=== PATIENT | male | born 1945 | race Caucasian/White ===

== ENCOUNTER 2016-03-30 15:26 | Inpatient (IN) | payer OTHER, MEDICARE ==
[~2016-03-30] VITALS: Ht 180.3 cm; Wt 121.1 kg
[~2016-03-30 15:26] MED LIST: ACETAMINOPHEN650 M5 PR; ASPIRIN EC325 MG PO; ATORVASTATIN CA20 MG PO; ATORVASTATIN CA40 MG PO; AUGMENTIN 875875 MG PO; DULCOLAX5 MG PR; FLEET ENEMA PR; LANTUS SOLOS100 U/ML SC; LEVEMIR 10100 UNITS/ SC; LEVEMIR100 UNIT/1 SC; LEXAPRO 10MG10 MG PO; MAPAP325 M1 PO; METFORMIN HCL500 MG PO; MILK OF MAGNESI30 ML PO; NICODERM C21 MG/24 H TOP; NOVOLOG FLEX100 U/ML SC; PREDNISONE 20MG20 MG PO; PRINIVIL 5MG5 MG PO; VITAMIN D250000 UNIT PO
--- NOTE | 2016-03-30 15:34 | NUR ---
PT BIBA FROM [facility] FOR INCREASED SOB OVER THE LAST COUPLE OF WEEKS, BUT TODAY THE SOB WAS UNBEARABLE. PT HAS HISTORY OF COPD AND EMPHYSEMA. ALSO COMPLAINTS OF CHEST PAIN "AFTER I COUGH." PRODUCTIVE COUGH WITH WHITE/GUTIERREZ SPUTUM OCCASIONALLY. PT'S O2 SAT 85% RA. PLACED ON 3 LITERS O2 WITH IMPROVEMENT TO 94%. COLOR WNL.
--- NOTE | 2016-03-30 15:39 | ED DYSPNEA/ASTHMA COMPLAINT ---
History of Present Illness General Chief Complaint: Dyspnea (COPD, CHF, Other) Stated Complaint: SOB X WEEKS, WORSE TODAY Source: patient Exam Limitations: no limitations Vital Signs & Intake/Output Vital Signs & Intake/Output Vital Signs Date Time Temp Pulse Resp B/P Pulse O2 O2 Flow FiO2 Ox Delivery Rate 03/30 1758 98.3 78 24 170/80 94 Nasal 2.0L Cannula 03/30 1600 98 Nasal 2.0L Cannula 03/30 1600 93 Nasal 2.0L Cannula 03/30 1536 97.2 88 20 184/77 94 Nasal 2.0L Cannula Allergies Coded Allergies: NO KNOWN ALLERGIES (01/19/14) Reconcile Medications Acetaminophen 650 MG SUPP.RECT 1 SUPP SD Q4H PRN PAIN/TEMP>/100 (Reported) Acetaminophen (Mapap) 325 MG TABLET 2 TAB PO Q4H PRN PAIN/TEMP>/100 (Reported ) Aspirin E.c. (Ecotrin) 325 MG TAB 1 TAB PO DAILY HEART/CIRCULATION (Reported) Atorvastatin Calcium (Lipitor) 20 MG TABLET 1 TAB PO DAILY CHOLESTEROL ( Reported) Budesonide/Formoterol Fumarate (Symbicort 160-4.5 Mcg Inhaler) 160 MCG-4.5 MCG/ ACTUATION HFA.AER.AD 2 PUF INH BID COPD (Reported) Dextran 70/Hypromellose (Artificial Tears) 1 EACH DROPERETTE 1 DROP OP TID BOTH EYES (Reported) Ergocalciferol (Vitamin D2) (Vitamin D2) 50,000 UNIT CAPSULE 1 CAP PO Q30D SUPPLEMENT (Reported) Escitalopram Oxalate (Lexapro) 5 MG TABLET 1 TAB PO DAILY ANXIETY/DEPRESSION (Reported) Fleet Enema (Fleet Enema (ER) 135 Ml) 19 GRAM-7 GRAM/118 ML ENEMA 1 E SD DAILY NEEDED PRN CONSTIPATION (Reported) Insulin Detemir (Levemir) 100 UNIT/ML VIAL 26 UNITS SC 1800 DM (Reported) Insulin Detemir (Levemir) 100 UNIT/ML VIAL 35 UNITS SC QAM DM (Reported) Insulin Lispro (Humalog) 100 UNIT/ML VIAL 2 UNITS SC TIDAC DM (Reported) Lisinopril (Prinivil) 10 MG TABLET 1 TAB PO DAILY BP (Reported) Mag Hydrox/Al Hydrox/Simeth (Almacone Liquid) 200 MG-200 MG-20 MG/5 ML ORAL.SUSP 30 ML PO Q8H PRN DYSPEPSIA (Reported) Magnesium Hydroxide (Milk Of Magnesia 30ML) 400 MG/5 ML ORAL.SUSP 30 ML PO DAILY NEEDED PRN CONSTIPATION (Reported) Metformin HCl (Glucophage) 1,000 MG TABLET 1 TAB PO BID DM (Reported) Tiotropium Mcloud (Spiriva) 18 MCG CAP.W.DEV 1 CAP INH DAILY COPD (Reported) Triage Note: PT BIBA FROM [facility] FOR INCREASED SOB OVER THE LAST COUPLE OF WEEKS, BUT TODAY THE SOB WAS UNBEARABLE. PT HAS HISTORY OF COPD AND EMPHYSEMA. ALSO COMPLAINTS OF CHEST PAIN "AFTER I COUGH." PRODUCTIVE COUGH WITH WHITE/GUTIERREZ SPUTUM OCCASIONALLY. PT'S O2 SAT 85% RA. PLACED ON 3 LITERS O2 WITH IMPROVEMENT TO 94%. COLOR WNL. Triage Nurses Notes Reviewed? yes Onset: Gradual Duration: week(s): (2) Timing: recent history Severity: moderate Activities at Onset: none Prior Episodes/Possible Cause: occasional episodes Modifying Factors: Improves With: immobilization. HPI: Patient is a 70-year-old male with history of emphysema presenting to the emergency department with chief complaint of increasing shortness of breath going on for 2 weeks with intermittent sputum production. He reports that he's been coughing up some gutierrez phlegm. Denies any chest pain except for when he coughs. Denies palpitations. He has been using nebulizer treatments with little relief. He does live in a nursing facility, his roommate was sick with upper respiratory symptoms. Denies any lower extremity edema. Denies fevers or chills. (ADRIÁN CHUN,NICANOR) Past History Travel History Traveled to [place] past 21 day No Medical History Any Pertinent Medical History? 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 No (NICANOR HACKETT) Review of Systems Review of Systems Constitutional: Reports: malaise. Comments Review of systems: See HPI, All other systems negative. Constitutional, no chills fever or weight loss HEENT: No visual changes no sore throat no congestion Cardiovascular: No chest pain ,palpitation , orthopnea or ankle swelling Skin, no jaundice no rashes Respiratory: No hemoptysis GI: No nausea no vomiting : No dysuria No hematuria Muscle skeletal: no back pain, no neck pain, Neurologic: No numbness no confusion no abel Psych: No stress anxiety Immunology: No splenectomy or history of AIDS (NICANOR HACKETT) Physical Exam Physical Exam General Appearance: well developed/nourished, no apparent distress, alert, awake , comfortable Respiratory: mild resp distress Comments: Well-developed well-nourished person in no acute distress HEENT: Pupils equally round and reactive to light and accommodation. Nose is atraumatic. Neck: Supple, no lymphadenopathy, normal range of motion without pain or tenderness Back: Nontender Cardiovascular: Regular rate and rhythms no murmurs rubs or gallops, normal JVP Respiratory: Chest nontender. mild respiratory distress. Diminished breath sounds with crackles noted to the right base Abdomen: Soft, nontender , slightly distended, no appreciable organomegaly. Normal bowel sounds. No ascites Extremity: No edema, no calf tenderness to palpation, normal and equal pulses. Right [id number] amputation. Neuro: Alert oriented x3 Skin: No appreciable rash on exposed skin, skin is warm and dry. Psych: Mood and affect is normal, memory and judgment is normal. Core Measures ACS in differential dx? No Severe Sepsis Present: No Septic Shock Present: No (NICANOR HACKETT) Progress Differential Diagnosis: asthma, bronchitis, costochondritis, CHF, COPD Plan of Care: Orders Procedure Date/time Status Heart Healthy Diet 03/31 B Active Pathway - chart 03/30 1943 Active House Staff 03/30 1943 Active Code Status 03/30 1943 Active Admit to inpatient 03/30 1852 Active Vital Signs 03/30 1852 Active Code Status 03/30 1853 Complete Admit to inpatient 03/30 1743 Active Patient Data 03/30 1732 Active BLOOD CULTURE 03/30 1637 Active Add-on Test (ER Only) 03/30 1605 Active B-TYPE NATRIURETIC PEP (BNP) 03/30 1555 Complete ARTERIAL BLOOD GAS (GEN) 03/30 1539 Active Telemetry/Claim Clinician 03/30 1539 Active URINALYSIS 03/30 1539 Complete TROPONIN LEVEL 03/30 1539 Complete PARTIAL THROMBOPLASTIN TIME 03/30 1539 Complete PROTHROMBIN TIME 03/30 1539 Complete COMPREHENSIVE METABOLIC PANEL 03/30 1539 Complete CBC WITHOUT DIFFERENTIAL 03/30 1539 Complete Intake & Output 03/30 1534 Active EKG 03/30 1530 Active Current Medications Sig/Frank Start time Last Medication Dose Stop Time Status Admin Vancomycin HCl 1,000 MG DAILY 03/31 1000 AC Sodium Chloride 250 ML (Normal Saline 0.9%) Ceftazidime 1,000 MG IQ8 03/31 0000 AC (Fortaz) Heparin Sodium 5,000 UNIT Q8 03/30 2200 AC (Porcine) Acetaminophen 650 MG Q6P PRN 03/30 1945 AC (Tylenol) Laboratory Tests 03/30/16 1755: Urinalysis LIGHT H, Urine Color YEL, Urine Clarity CLEAR, Urine pH 6.0, Ur Specific Jerome 1.020, Urine Protein 100 H, Urine Ketones NEG, Urine Nitrite NEG, Urine Bilirubin NEG, Urine Urobilinogen 0.2, Ur Leukocyte Esterase NEG, Ur Microscopic SEDIMENT EXAMINED, Urine RBC 1-3, Urine WBC RARE, Ur Epithelial Cells RARE, Hyaline Casts 1-3 H, Urine Mucus RARE, Urine Hemoglobin MOD H, Urine Glucose NEG 03/30/16 1555: Anion Gap 12, Estimated GFR 35 L, BUN/Creatinine Ratio 23.7, Glucose 157 H, Calcium 8.7, Total Bilirubin 0.6, AST 22, ALT 31, Alkaline Phosphatase 152 H, Troponin I 0.06, Msh-Y-Fgxmygmxtht Pept 6780 H, Total Protein 7.3, Albumin 3.4 L, Globulin 3.9, Albumin/Globulin Ratio 0.9 L, PT 12.9 H, INR 1.23 H, APTT 32 , CBC w Diff NO MAN DIFF REQ, RBC 3.37 L, MCV 86.5, MCH 28.6, RDW 15.2 H, MPV 7.5, Gran % 85.7 H, Lymphocytes % 5.8 L, Monocytes % 5.7, Eosinophils % 2.6, Basophils % 0.2, Absolute Granulocytes 8.0 H, Absolute Lymphocytes 0.5 L, Absolute Monocytes 0.5, Absolute Eosinophils 0.2, Absolute Basophils 0, PUBS MCHC 33.1 03/30/16 1550: pH 7.40, pCO2 33 L, pO2 65 L, HCO3 20 L, ABG O2 Sat (Measured) 92.0 L, P-50 (Temp Corrected) N, Carboxyhemoglobin 1.0 L, O2 Concentration % 2L, Temperature 97.2, O2 Delivery Method NC, Phlebotomy Draw Site RIGHT RADIAL Microbiology 03/30 1645 BLOOD: Blood Culture - RECD 03/30 163 BLOOD: Blood Culture - RECD Diagnostic Imaging: Viewed by Me: Radiology Read. Discussed w/RAD: Radiology Read. Radiology Impression: PATIENT: FANNY LADD PRESENT AGE: 70 PATIENT ACCOUNT NO: [id number] : 44 LOCATION: [facility] ORDERING PHYSICIAN: NICANOR CHUN SERVICE DATE: 03/30/16 EXAM TYPE: RAD - XRY-PORTABLE CHEST XRAY EXAMINATION: XR PORTABLE CHEST CLINICAL INFORMATION: Cough and shortness of breath. COMPARISON: CXR from 10/20/[address] from 10/22/2014 TECHNIQUE: Portable view of the chest was obtained. FINDINGS: Severe pulmonary disease. Emphysema has an upper lobe predominance. There is chronic peribronchial interstitial thickening in both lungs, likely related to chronic bronchitis. Within the right upper lobe, there is new hazy opacity, suspicious for pneumonia. There are linear, streaky opacities within the lower lung zones, likely representing atelectasis secondary to bronchitis and similar in appearance compared to 10/20/2014. Stable enlargement of the cardiac silhouette and hilar vessels. No overt pleural effusion. No acute skeletal findings. IMPRESSION: 1. Chronic peribronchial interstitial thickening -- likely bronchitis -- and pulmonary emphysema. 2. New, hazy opacity in right upper lobe is suspicious for pneumonia. 3. Linear opacities of atelectasis in lower lobes remain similar in appearance compared to 10/20/2014. DICTATED BY: GENOVEVA PERLA MD DATE/TIME DICTATED:03/30/161608 [employer] TE[employer]ER:BALDOMERO DATE/TIME TRANSCRIBED:03/30/16 / 1609 CONFIDENTIAL, DO NOT COPY WITHOUT APPROPRIATE AUTHORIZATION. <Electronically signed in Other Vendor System> SIGNED BY: GENOVEVA PERLA MD 03/30/16 8031 Initial ED EKG: sinus rhythm at 88 beats pruritic, minimal nonspecific st depression in lateral leads Comments: 03/30/2016 2:08:03 PM arrival patient given DuoNeb treatment, he will go for x-ray to rule out pneumonia. 03/30/2016 5:08:46 PM patient given IV vancomycin and Fortaz for pneumonia. Patient will be admitted, he will need continued supplemental oxygen. Pulmonology consultation. Discharge at this time would be medically harmful. (NICANOR HACKETT) Departure Departure Time of Disposition: 1649 Disposition: STILL A PATIENT Condition: Stable Clinical Impression Primary Impression: Pneumonia Qualifiers: Pneumonia type: due to unspecified organism Laterality: right Lung location: middle lobe of lung Qualified Code: J18.9 - Pneumonia, unspecified organism Secondary Impressions: COPD exacerbation, Hypoxemia Referrals: BOBBY HILTON APRN (PCP/Family) Referred to [facility] as new patient No Departure Forms: Customer Survey General Discharge Information Admission Note Spoke With: STEPHANIE LOUIS MD Documentation of Exam: Documentation of any treatments & extenuating circumstances including Concerns Regarding Discharge (functional status, medication knowledge or non-compliance, living conditions, etc.) that warrant an admission rather than observation: Patient will need IV antibiotics, supplemental oxygen which is new for this patient, serial DuoNeb treatments, pulmonology consultation. Discharge at this time would be medically harmful. (NICANOR HACKETT) PA/INSTALLATION HELPER Co-Sign Statement Statement: ED Attending supervision documentation- [x] I saw and evaluated the patient. I have also reviewed all the pertinent lab results and diagnostic results. I agree with the findings and the plan of care as documented in the PA's/INSTALLATION HELPER's documentation. [] I have reviewed the ED Record and agree with the PA's/INSTALLATION HELPER's documentation. [] Additions or exceptions (if any) to the PAs/INSTALLATION HELPER's note and plan are summarized below: [] (RILEY MOSQUEDA DO) Critical Care Note Critical Care Note Critical Care Time: non-applicable (NICANOR HACKETT)
--- NOTE | 2016-03-30 15:41 | NUR ---
RT CALLED FOR NEB
--- NOTE | 2016-03-30 15:43 | NUR ---
LAY SAMPSON IN FOR [facility]
--- NOTE | 2016-03-30 15:46 | NUR ---
PORT CXR IN PROGRESS
--- NOTE | 2016-03-30 15:49 | NUR ---
RT AT BEDSIDE.
--- NOTE | 2016-03-30 16:00 | NUR ---
LABS DRAWN AND SENT BY THIS [facility] BLUE, SST X2, LAV X2, PINK, HEADLEY
[2016-03-30 16:07] LABS: ABSOLUTE BASOPHIL COUNT 0 /CUMM (0.0-0.2); ABSOLUTE EOSINOPHIL COUNT 0.2 /CUMM (0.0-0.7); ABSOLUTE LYMPH COUNT 0.5 /CUMM (1.2-3.4); ABSOLUTE MONOCYTE COUNT 0.5 /CUMM (0.10-0.60); BASOPHIL % 0.2 % (0.0-2.0); EOSINOPHIL % 2.6 % (0-5); HEMATOCRIT 29.2 % (42-52); MEAN CORPUSCULAR HGB 28.6 PG (27.0-31.0); MEAN CORPUSCULAR HGB CONC 33.1 G/DL (33.0-37.0); MEAN CORPUSCULAR VOLUME 86.5 FL (80.0-94.0); MEAN PLATELET VOLUME 7.5 FL (7.4-10.4); PLATELET COUNT 322 /CUMM (130-400); RBC DISTRIBUTION WIDTH 15.2 % (11.5-14.5); RED BLOOD CELL CT 3.37 /CUMM (4.70-6.10); WHITE BLOOD CELL COUNT 9.3 /CUMM (4.8-10.8)
[2016-03-30 16:09] LABS: GRANULOCYTE % 85.7 % (42.2-75.2)
--- NOTE | 2016-03-30 16:22 | RADIOLOGY REPORT ---
EXAMINATION: XR PORTABLE CHEST CLINICAL INFORMATION: Cough and shortness of breath. COMPARISON: CXR from 10/20/[address] from 10/22/2014 TECHNIQUE: Portable view of the chest was obtained. FINDINGS: Severe pulmonary disease. Emphysema has an upper lobe predominance. There is chronic peribronchial interstitial thickening in both lungs, likely related to chronic bronchitis. Within the right upper lobe, there is new hazy opacity, suspicious for pneumonia. There are linear, streaky opacities within the lower lung zones, likely representing atelectasis secondary to bronchitis and similar in appearance compared to 10/20/2014. Stable enlargement of the cardiac silhouette and hilar vessels. No overt pleural effusion. No acute skeletal findings. IMPRESSION: 1. Chronic peribronchial interstitial thickening -- likely bronchitis -- and pulmonary emphysema. 2. New, hazy opacity in right upper lobe is suspicious for pneumonia. 3. Linear opacities of atelectasis in lower lobes remain similar in appearance compared to 10/20/2014.
[2016-03-30 16:25] LABS: PT 12.9 SEC (9.4-12.5); PTT 32 SEC (25-37)
[2016-03-30] MEDS ORDERED: HUMALOG100 UNIT/2 SC (16:47)
[2016-03-30] MEDS ORDERED: GLUCOPHAGE1000 M1 PO (16:48)
[2016-03-30] MEDS ORDERED: SYMBICORT 16010.2 GM INH (16:48)
[2016-03-30] MEDS ORDERED: SPIRIVA18 MCG INH (16:50)
[2016-03-30] MEDS ORDERED: LEXAPRO5 M1 PO (16:50)
[2016-03-30] MEDS ORDERED: ARTIFICIAL TEA1 EACH OP (16:51)
[2016-03-30] MEDS ORDERED: PRINIVIL10 M1 PO (16:53)
[2016-03-30] MEDS ORDERED: ALMACONE LIQUI355 ML PO (16:58)
--- NOTE | 2016-03-30 17:27 | NUR ---
PLEASE CALL T WITH UPDATE MARK
--- NOTE | 2016-03-30 17:55 | NUR ---
URINE TRIO SENT
--- NOTE | 2016-03-30 18:14 | History & Physical ---
TIFFANY SORIANOSHREE 03/30/16 0563: General Information and HPI MD Statement: I have seen and personally examined FANNY LADD and documented this H&P. The patient is a 70 year old M who presented with a patient stated chief complaint of [shortness of breath]. Source of Information: patient Exam Limitations: no limitations History of Present Illness: 70-year-old male with PMH of insulin dependent DM, hypertension, right above the knee amputation, left below the knee amputation, intermediate resident of 2 years, presented with increased shortness of breath. On Wednesday, he noted that his breathing is worse, and it would take him an hour to get up the stairs. This morning, he was feeling extremely short of breath rolling his wheelchair from his bed to his bathroom, which is a distance of 8 feet. He also notes some chest pain especially when he coughs. His cough is not productive of sputum. Of note, his roommate also has been having upper respiratory symptoms and he was being treated with pneumonia. In the ED, his o2 sat was found to be 85% on RA and improved to 94% on 3L O2. On examination, he was sitting comfortably in bed, and appeared to be in no respiratory distress. He reported feeling "60% better already". He is still a current smoker, smoking about 8 cigarette/day, but was smoking 2.5 ppd for more than 50 years. On ROS, he denies fever, chills, orthopnea (uses 2 pillows to sleep, and he seems to prefer to sleep sitting up). He reports feeling more tired, feeling constipated, and some chest tightness. Allergies/Medications Allergies: Coded Allergies: NO KNOWN ALLERGIES (01/19/14) Home Med list Acetaminophen 650 MG SUPP.RECT 1 SUPP [place] Q4H PRN PAIN/TEMP>/100 (Reported) Acetaminophen (Mapap) 325 MG TABLET 2 TAB PO Q4H PRN PAIN/TEMP>/100 (Reported ) Aspirin E.c. (Ecotrin) 325 MG TAB 1 TAB PO DAILY HEART/CIRCULATION (Reported) Atorvastatin Calcium (Lipitor) 20 MG TABLET 1 TAB PO DAILY CHOLESTEROL ( Reported) Budesonide/Formoterol Fumarate (Symbicort 160-4.5 Mcg Inhaler) 160 MCG-4.5 MCG/ ACTUATION HFA.AER.AD 2 PUF INH BID COPD (Reported) Dextran 70/Hypromellose (Artificial Tears) 1 EACH DROPERETTE 1 DROP OP TID BOTH EYES (Reported) Ergocalciferol (Vitamin D2) (Vitamin D2) 50,000 UNIT CAPSULE 1 CAP PO Q30D SUPPLEMENT (Reported) Escitalopram Oxalate (Lexapro) 5 MG TABLET 1 TAB PO DAILY ANXIETY/DEPRESSION (Reported) Fleet Enema (Fleet Enema (ER) 135 Ml) 19 GRAM-7 GRAM/118 ML ENEMA 1 E [place] DAILY NEEDED PRN CONSTIPATION (Reported) Insulin Detemir (Levemir) 100 UNIT/ML VIAL 26 UNITS SC 1800 DM (Reported) Insulin Detemir (Levemir) 100 UNIT/ML VIAL 35 UNITS SC QAM DM (Reported) Insulin Lispro (Humalog) 100 UNIT/ML VIAL 2 UNITS SC TIDAC DM (Reported) Lisinopril (Prinivil) 10 MG TABLET 1 TAB PO DAILY BP (Reported) Mag Hydrox/Al Hydrox/Simeth (Almacone Liquid) 200 MG-200 MG-20 MG/5 ML ORAL.SUSP 30 ML PO Q8H PRN DYSPEPSIA (Reported) Magnesium Hydroxide (Milk Of Magnesia 30ML) 400 MG/5 ML ORAL.SUSP 30 ML PO DAILY NEEDED PRN CONSTIPATION (Reported) Metformin HCl (Glucophage) 1,000 MG TABLET 1 TAB PO BID DM (Reported) Tiotropium [place] (Spiriva) 18 MCG CAP.W.DEV 1 CAP INH DAILY COPD (Reported) Past History Travel History Traveled to [place] past 21 day No Medical History Neurological: NONE EENT: NONE Cardiovascular: hypertension, ELEVATED CHOLESTEROL Respiratory: NONE Gastrointestinal: NONE Hepatic: NONE Renal: NONE Musculoskeletal: R ABOVE KNEE AMPUTATION L BELOW KNEE AMPUTATION, L below knee amputation Psychiatric: NONE Endocrine: DIABETES (TYPE II) Blood Disorders: NONE Cancer(s): NONE 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 [facility] Services at Home: Nursing Smoking Status: Current Everyday Smoker ETOH Use: denies use Illicit Drug Use: denies illicit drug use Functional Ability Ambulation: wheelchair Review of Systems Review of Systems Constitutional: Reports: malaise. Denies: chills, fever. EENTM: Denies: visual changes. Cardiovascular: Reports: chest pain. Denies: edema, orthopena, palpitations, peripheral edema, syncope. Respiratory: Reports: cough, short of breath. Denies: orthopnea, sputum production, wheezing. GI: Reports: constipation. Denies: abdominal pain, bloating, diarrhea. Exam & Diagnostic Data Last 24 Hrs of Vital Signs/I&O Vital Signs Date Time Temp Pulse Resp B/P Pulse O2 O2 Flow FiO2 Ox Delivery Rate 03/30 1758 98.3 78 24 170/80 94 Nasal 2.0L Cannula 03/30 1600 98 Nasal 2.0L Cannula 03/30 1600 93 Nasal 2.0L Cannula 03/30 1536 97.2 88 20 184/77 94 Nasal 2.0L Cannula Intake & Output 03/30 1600 03/30 0800 03/30 0000 Intake Total 0 Output Total Balance 0 Intake, Oral 0 Patient 122.016 kg Weight Physical Exam General Appearance Alert, Oriented X3, Cooperative, No Acute Distress, sitting comfortably on the bed in no distress Skin dry crusted lesions on both arms reportedly due to skin cancer treatment (7 years ago) HEENT Atraumatic, PERRLA, Mucous Membr. moist/pink Neck Supple Cardiovascular Regular Rate, Normal S1, Normal S2, No Murmurs, Gallops, Rubs Lungs diffuse decreased breath sound Abdomen Normal Bowel Sounds, Soft, No Tenderness, obese Neurological Normal Speech Assessment/Plan Assessment: 70-year-old male with PMH of insulin dependent DM, hypertension, right above the knee amputation, left below the knee amputation, intermediate resident of 2 years, presented with increased shortness of breath, with hx of sick contact. # Acute hypoxemic respiratory failure most likely due to healthcare acquired pneumonia - Imaging: New, hazy opacity in right upper lobe is suspicious for pneumonia. Chronic peribronchial interstitial thickening -- likely bronchitis -- and pulmonary emphysema. - ABG on arrival 7.40/33L/65L/20L - Given 1 time vancomycin and ceftazidime in the ED * Continue vancomycin and ceftazidime * TRC/nebs * urine legionella, strep pneumo * follow blood cultures, sputum cultures # Brief episode of atrial afibrillation * tele monitor * Cardio consult * continue aspirin # Hypertension * Labetalol 5mg # Insulin dependent diabetes mellitus * Consider checking hba1c * Continue insulin # SRIDEVI on CKD? * Hold lisinopril Diet: CC3 DVT ppx: heparin sc, no alps because he has bilateral amputation. FC As Ranked By This Provider Problem List: 1. Pneumonia Qualifiers Pneumonia type: due to unspecified organism Laterality: right Lung location: middle lobe of lung Qualified Code: J18.9 - Pneumonia, unspecified organism 2. Hypoxemia Core Measures/Miscellaneous Acute Coronary Syndrome ACS Diagnosis: No Cerebrovascular Accident CVA/TIA Diagnosis: No Congestive Heart Failure CHF Diagnosis: No Venous Thromboembolism VTE Risk Factors: Acute medical illness, Age > 40 VTE Prophylaxis Ordered Inpt: Pharm- Heparin No Mech VTE prophylaxis d/t: Amputee No VTE Pharm Prophylaxis d/t: No contraindications VTE Diagnosis: No VTE Type: NONE VTE Confirmed by (Test): NONE Severe Sepsis Severe Sepsis Present: No Septic Shock Septic Shock Present: No Miscellaneous Documentation Attending Case Discussed With: HERIBERTO SORIANO,STEPHANIE Gutierrez Primary Care Physician: BOBBY HILTON APRN Patient sees these Specialists Dr. 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 Patient reported that he is having cough for couple of weeks and now he is having shortness of breath on exertion she is getting worse during one or 2 days. Reports that his room mate has symptoms of URI. He denies any nausea, vomiting, chest pain but reports chest tightness. He denies any fevers, chills, dizziness, changes in urinary or bowel habits(except constipation). Vital signs on admission showed elevated blood pressure with no fevers and O2 saturation over 92% on 3 L. upon admission patient briefly went into atrial fibrillation and Converted back to sinus. Initial EKG shows sinus rhythm, 88, QTC 489, no acute ST-T changes ABG showed HCO3 20, PO2 65, CO2 33, BMP 6780, hemoglobin 9.6, creatinine 1.9 cxr: IMPRESSION: 1. Chronic peribronchial interstitial thickening -- likely bronchitis -- and pulmonary emphysema. 2. New, hazy opacity in right upper lobe is suspicious for pneumonia. 3. Linear opacities of atelectasis in lower lobes remain similar in appearance compared to 10/20/2014. Assessment -Diabetes -Multilobar pneumonia -Brief episode of atrial fibrillation -COPD and chronic smoker -Depression -HTN -SRIDEVI on CKD? -anemia Plan -put the patient on ceftaz and vanc -Admit to telemetry and cardiology consult in the morning -24 hour telemetry, lab on troponin and troponin for the morning with EKG -TRC nebs with spiriva -Diabetic diet, long-acting(hald dose) and short-acting insulin -Stop lisinopril for CKD -Continue Lexapro -Labetalol 5 mg for high blood pressure -Urine legionella, strep, blood cultures, sputum cultures -Full code, DVT prophylaxis subcutaneous heparin, diabetic diet -Continue aspirin -watch for bleeding
--- NOTE | 2016-03-30 18:20 | NUR ---
HOUSESTAFF IN FOR KAMI
--- NOTE | 2016-03-30 18:32 | NUR ---
ALBUTEROL X 3 ORDERED BY NICANOR Yee WERE CANCELLED DISCUSSED WITH NICANOR Yee
--- NOTE | 2016-03-30 19:07 | NUR ---
AWAITING BED ASSIGNMENT. Informed waiting has been performed.
--- NOTE | 2016-03-30 19:42 | NUR ---
PT SITTING UP IN STRETCHER. NO S/S OF RESPIRATORY DISTRESS.
--- NOTE | 2016-03-30 19:59 | NUR ---
PT'S RM ASSIGNMENT 230 BED 2
--- NOTE | 2016-03-30 20:28 | NUR ---
UPDATED RM ASSIGNMENT 226
--- NOTE | 2016-03-30 20:50 | NUR ---
MANUAL B/P 180/80, HEART RATE 106-130'S AND IRREGULAR. EKG AFIB. HOUSE STAFF NOTIFED AND UPDATED THE CHANGE OF CONDITION. PT DENIES ANY CARDIOPULMONARY DISTRESS.
--- NOTE | 2016-03-30 21:04 | NUR ---
SINUS RHYTHM IN 80'S AT THIS TIME. HOUSE STAFF AWARE.
--- NOTE | 2016-03-30 21:29 | NUR ---
UPDATED RM RM ASSIGNMENT 172
--- NOTE | 2016-03-30 21:56 | NUR ---
REPORT CALLED. DISTRIBUTION CALLED.
--- NOTE | 2016-03-30 22:24 | NUR ---
FANNY LADD Nurse Note by: URIEL VYAS I agree with the DAY CARE WORKER findings/evaluation of this patient's condition. Entered by: URIEL VYAS Date: 03/30/16 Time: 2223
[2016-03-30 22:26] VITALS: BP 172/80
--- NOTE | 2016-03-31 07:01 | PN- Att Addend ---
Attending Addendum Attending Brief Note Current Medications Sig/Frank Start time Last Medication Dose Route Stop Time Status Admin Acetaminophen 650 MG Q4P PRN 03/30 2230 AC PO Acetaminophen 650 MG Q6P PRN 03/30 1945 AC PO Acetaminophen 1,000 MG Q8 PRN 03/30 1730 DC N/A 1 UNIT IV Albuterol Sulfate 3 ML ONCE ONE 03/30 1545 DC 03/30 INH 03/30 1546 1548 Albuterol Sulfate 3 ML ONCE ONE 03/30 1545 DC INH 03/30 1546 Albuterol Sulfate 3 ML ONCE ONE 03/30 1545 DC INH 03/30 1546 Albuterol Sulfate 3 ML ONCE ONE 03/30 1545 DC INH 03/30 1546 Amlodipine Besylate 5 MG DAILY 03/31 1000 AC 03/31 PO 0300 Artificial Tears 2 GTT TID 03/30 2224 AC OPH Aspirin Buffered 325 MG DAILY 03/31 1000 AC PO Atorvastatin Calcium 20 MG DAILY 03/31 1000 AC PO Ceftazidime 1,000 MG IQ8 03/31 0000 AC 03/31 IV 0027 Ceftazidime 0 .STK-MED ONE 03/30 1646 DC .ROUTE Ceftazidime 1,000 MG ONCE ONE 03/30 1645 DC 03/30 IV 03/30 1646 1721 Escitalopram Oxalate 5 MG DAILY 03/31 1000 AC PO Heparin Sodium 5,000 UNIT Q8 03/30 2200 AC 03/31 (Porcine) SC 0600 Insulin Aspart 0 TIDAC 03/31 0800 AC SC Insulin Detemir 20 UNITS BID 03/31 1000 AC SC Ipratropium [place] 2.5 ML ONCE ONE 03/30 1545 DC 03/30 INH 03/30 1546 1548 Labetalol HCl 0 .STK-MED ONE 03/30 2142 DC IV Labetalol HCl 5 MG ONCE ONE 03/30 2130 DC IV 03/30 2131 Lisinopril 10 MG DAILY 03/31 1000 CAN PO Metoprolol Tartrate 5 MG ONCE ONE 03/30 2115 CAN IV 03/30 211 Morphine Sulfate 2 MG Q6P PRN 03/30 1730 DC IV Tiotropium [place] 1 PUF DAILY 03/31 1000 AC INH Tramadol HCl 50 MG Q8P PRN 03/30 1730 DC PO Vancomycin HCl 1,000 MG DAILY 03/31 1000 AC Sodium Chloride 250 ML IV Vancomycin HCl 0 .STK-MED ONE 03/30 1646 DC .ROUTE Vancomycin HCl 1,000 MG ONCE ONE 03/30 1645 DC 03/30 Sodium Chloride 250 ML IV 03/30 1744 1721 Laboratory Tests 03/30 03/30 2300 1755 Chemistry Troponin I Cancelled Urines Urinalysis LIGHT H Urine Color (YEL,AMB,STR) YEL Urine Clarity (CLEAR) CLEAR Urine pH (5.0 - 8.0) 6.0 Ur Specific [place] (1.001 - 1.035) 1.020 Urine Protein (NEG,<30 MG/DL) 100 H Urine Ketones (NEG) NEG Urine Nitrite (NEG) NEG Urine Bilirubin (NEG) NEG Urine Urobilinogen (0.1 - 1.0 EU/dl) 0.2 Ur Leukocyte Esterase (NEG) NEG Ur Microscopic SEDIMENT EXAMINED Urine RBC (0 - 5 /HPF) 1-3 Urine WBC (0 - 2 /HPF) RARE Ur Epithelial Cells (NONE,FEW) RARE Hyaline Casts (0/LPF) 1-3 H Urine Mucus (FEW,NONE) RARE Urine Hemoglobin (NEG) MOD H Urine Glucose (N MG/DL) NEG 03/30 03/30 1555 1550 Blood Gas pH (7.35 - 7.45 PH) 7.40 pCO2 (35 - 45 TORR) 33 L pO2 (80 - 100 TORR) 65 L HCO3 (21 - 28 MEQ/L) 20 L ABG O2 Sat (Measured) (>96.0 %) 92.0 L P-50 (Temp Corrected) N Carboxyhemoglobin (1.5 - 5.0 %) 1.0 L O2 Concentration % 2L Temperature (97.0 - 100.0 FARH) 97.2 O2 Delivery Method NC Chemistry Sodium (137 - 145 mmol/L) 138 Potassium (3.5 - 5.1 mmol/L) 4.9 Chloride (98 - 107 mmol/L) 102 Carbon Dioxide (22 - 30 mmol/L) 24 Anion Gap (5 - 16) 12 BUN (9 - 20 mg/dL) 45 H Creatinine (0.7 - 1.2 mg/dL) 1.9 H Estimated GFR (>60 ml/min) 35 L BUN/Creatinine Ratio (7 - 25 %) 23.7 Glucose (65 - 99 mg/dL) 157 H Calcium (8.4 - 10.2 mg/dL) 8.7 Total Bilirubin (0.2 - 1.3 mg/dL) 0.6 AST (17 - 59 U/L) 22 ALT (21 - 72 U/L) 31 Alkaline Phosphatase (< 127 U/L) 152 H Troponin I (<0.11 ng/ml) 0.06 Myg-R-Ecqqairhbnt Pept (<125 pg/mL) 6780 H Total Protein (6.3 - 8.2 g/dL) 7.3 Albumin (3.5 - 5.0 g/dL) 3.4 L Globulin (1.9 - 4.2 gm/dL) 3.9 Albumin/Globulin Ratio (1.1 - 2.2 %) 0.9 L Coagulation PT (9.4 - 12.5 SEC) 12.9 H INR (0.90 - 1.17) 1.23 H APTT (25 - 37 SEC) 32 Hematology CBC w Diff NO MAN DIFF REQ WBC (4.8 - 10.8 /CUMM) 9.3 RBC (4.70 - 6.10 /CUMM) 3.37 L Hgb (14.0 - 18.0 G/DL) 9.6 L Hct (42 - 52 %) 29.2 L MCV (80.0 - 94.0 FL) 86.5 MCH (27.0 - 31.0 PG) 28.6 RDW (11.5 - 14.5 %) 15.2 H Plt Count (130 - 400 /CUMM) 322 MPV (7.4 - 10.4 FL) 7.5 Gran % (42.2 - 75.2 %) 85.7 H Lymphocytes % (20.5 - 51.1 %) 5.8 L Monocytes % (1.7 - 9.3 %) 5.7 Eosinophils % (0 - 5 %) 2.6 Basophils % (0.0 - 2.0 %) 0.2 Absolute Granulocytes (1.4 - 6.5 /CUMM) 8.0 H Absolute Lymphocytes (1.2 - 3.4 /CUMM) 0.5 L Absolute Monocytes (0.10 - 0.60 /CUMM) 0.5 Absolute Eosinophils (0.0 - 0.7 /CUMM) 0.2 Absolute Basophils (0.0 - 0.2 /CUMM) 0 PUBS MCHC (33.0 - 37.0 G/DL) 33.1 Miscellaneous Phlebotomy Draw Site RIGHT RADIAL Attending admitting note. [age] gentleman with a history of for COPD and chronic smoker admitted with a chief complaint of shortness of breath. Having increased shortness of breath with cough and wheezing air expectoration. 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 An assistive dyslipidemia history of coronary artery disease. On examination Patient is awake alert oriented Vital signs blood pressure is 150/80 heart rate is 70 respirations are 20 temperature is 98.3 O2 sat is 94% on 2 L. Conjunctivae is anicteric JVD is not raised S1-S2 is normal Lung and air entry equal bilaterally expiratory wheezing bilaterally diffuse poor air entry With some scattered rhonchi. Abdomen is soft distended bowel sounds are present. Extremities he has the right pneumonia and left below-knee amputations. Labs Chest x-ray shows chronic peribronchial interstitial thickening with COPD right upper lobe suspicious for pneumonia. Assessment #1 right upper lobe pneumonia The patient IV ceftazidime and IV vancomycin TRC sputum cultures blood cultures Pulmonary consult.
--- NOTE | 2016-03-31 07:02 | Admission Certification ---
Admission Certification Certification Statement - As attending physician, I certify that at the time of - admission, based on clinical presentation, severity of - symptoms, need for further diagnostic testing and - therapeutic interventions, and risk of adverse outcomes - without in-hospital treatment, in my clinical assessment, - this patient requires an acute hospital stay for a minimum - of two nights or longer. I have also considered psychsocial - factors such as support system, advanced age, financial - issues, cognitive issues, and failed out-patient treatments, - past re-admission history, safety of patient, and lack of - compliance as applicable. Specific rationale supporting this admission is: Patient is admitted to the hospital for exacerbation of COPD and pneumonia and the right upper lobe. Patient admitted for IV antibiotics.
--- NOTE | 2016-03-31 07:34 | PN- Housestaff ---
Subjective Follow-up For: HCAP DIABETES single episode of afib Tele-Events Since Last Visit: NSR, 77-8, no events Subjective: I have seen and examined the patient. patient feels better today. on 2 L oxygen. no episodes of fever or afib over the night. Review of Systems Constitutional: Reports: see HPI. Objective Last 24 Hrs of Vital Signs/I&O Vital Signs Date Time Temp Pulse Resp B/P Pulse O2 O2 Flow FiO2 Ox Delivery Rate 03/31 0300 80 180/80 03/30 2300 94 Nasal 2.0L Cannula 03/30 2226 98.5 81 20 172/80 96 Nasal 3.0L Cannula 03/30 2148 97.1 79 22 168/74 03/30 2146 97.1 78 22 168/74 96 Nasal 2.0L Cannula 03/30 2054 97.0 80 22 180/80 97 Nasal 2.0L Cannula 03/30 1758 98.3 78 24 170/80 94 Nasal 2.0L Cannula 03/30 1600 98 Nasal 2.0L Cannula 03/30 1600 93 Nasal 2.0L Cannula 03/30 1536 97.2 88 20 184/77 94 Nasal 2.0L Cannula Intake & Output 03/31 0800 03/31 0000 03/30 1600 Intake Total 200 450 0 Output Total 900 300 Balance -700 150 0 Intake, IV 250 Intake, Oral 200 200 0 Output, Urine 900 300 Patient 267 lb 269 lb Weight Physical Exam General Appearance: Alert, Oriented X3, Cooperative Cardiovascular: Regular Rate, Normal S1, Normal S2 Lungs: decreased breath sounds bilaterally, right lung wheezing Current Medications: Current Medications Sig/Frank Start time Last Medication Dose Route Stop Time Status Admin Acetaminophen 650 MG Q4P PRN 03/30 2230 AC PO Acetaminophen 650 MG Q6P PRN 03/30 1945 AC PO Acetaminophen 1,000 MG Q8 PRN 03/30 1730 DC N/A 1 UNIT IV Albuterol Sulfate 3 ML ONCE ONE 03/30 1545 DC 03/30 INH 03/30 1546 1548 Albuterol Sulfate 3 ML ONCE ONE 03/30 1545 DC INH 03/30 1546 Albuterol Sulfate 3 ML ONCE ONE 03/30 1545 DC INH 03/30 1546 Albuterol Sulfate 3 ML ONCE ONE 03/30 1545 DC INH 03/30 1546 Amlodipine Besylate 5 MG DAILY 03/31 1000 AC 03/31 PO 0300 Artificial Tears 2 GTT TID PRN 03/31 0733 AC OPH Artificial Tears 2 GTT TID 03/30 2224 DC OPH Aspirin Buffered 325 MG DAILY 03/31 1000 AC PO Atorvastatin Calcium 20 MG DAILY 03/31 1000 AC PO Ceftazidime 1,000 MG IQ8 03/31 0000 AC 03/31 IV 0027 Ceftazidime 0 .STK-MED ONE 03/30 1646 DC .ROUTE Ceftazidime 1,000 MG ONCE ONE 03/30 1645 DC 03/30 IV 03/30 1646 1721 Escitalopram Oxalate 5 MG DAILY 03/31 1000 AC PO Guaifenesin 600 MG Q12 03/31 1000 AC PO Heparin Sodium 5,000 UNIT Q8 03/30 2200 AC 03/31 (Porcine) SC 0600 Insulin Aspart 0 TIDAC 03/31 0800 AC SC Insulin Detemir 20 UNITS BID 03/31 1000 AC SC Ipratropium [place] 2.5 ML ONCE ONE 03/30 1545 DC 03/30 INH 03/30 1546 1548 Labetalol HCl 0 .STK-MED ONE 03/30 2142 DC IV Labetalol HCl 5 MG ONCE ONE 03/30 2130 DC IV 03/30 2131 Lisinopril 10 MG DAILY 03/31 1000 CAN PO Metoprolol Tartrate 5 MG ONCE ONE 03/30 2115 CAN IV 03/30 211 Morphine Sulfate 2 MG Q6P PRN 03/30 1730 DC IV Tiotropium [place] 1 PUF DAILY 03/31 1000 AC INH Tramadol HCl 50 MG Q8P PRN 03/30 1730 DC PO Vancomycin HCl 1,000 MG DAILY 03/31 1000 AC Sodium Chloride 250 ML IV Vancomycin HCl 0 .STK-MED ONE 03/30 1646 DC .ROUTE Vancomycin HCl 1,000 MG ONCE ONE 03/30 1645 DC 03/30 Sodium Chloride 250 ML IV 03/30 1744 1721 Assessment/Plan Assessment: 70-year-old male with PMH of insulin dependent DM, daily smoker,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 Patient reported that he is having cough for couple of weeks and now he is having shortness of breath on exertion she is getting worse during one or 2 days. Reports that his room mate has symptoms of URI. He denies any nausea, vomiting, chest pain but reports chest tightness. He denies any fevers, chills, dizziness, changes in urinary or bowel habits(except constipation). Vital signs on admission showed elevated blood pressure with no fevers and O2 saturation over 92% on 3 L. upon admission patient briefly went into atrial fibrillation and Converted back to sinus. Initial EKG shows sinus rhythm, 88, QTC 489, no acute ST-T changes ABG showed HCO3 20, PO2 65, CO2 33, BMP 6780, hemoglobin 9.6, creatinine 1.9 cxr: IMPRESSION: 1. Chronic peribronchial interstitial thickening -- likely bronchitis -- and pulmonary emphysema. 2. New, hazy opacity in right upper lobe is suspicious for pneumonia. 3. Linear opacities of atelectasis in lower lobes remain similar in appearance compared to 10/20/2014. Assessment -Diabetes -Multilobar pneumonia -Brief episode of atrial fibrillation -COPD and chronic smoker -Depression -HTN -SRIDEVI on CKD? -anemia Plan -continue on ceftaz and vanc, mucinex, -pumonology consult pending -cardiology consult pending -24 hour telemetry, EKG, trops : unremarkable -TRC nebs with spiriva -Diabetic diet, long-acting(hald dose) and short-acting insulin with accuchecks -Stop lisinopril for CKD, cr is getting better 1.7 -Continue Lexapro -Urine legionella, strep, blood cultures, sputum cultures -Full code, DVT prophylaxis subcutaneous heparin, diabetic diet -Continue aspirin -watch for bleeding, stable H&H ( possibly due to CKD, will check iron studies) Problem List: 1. Pneumonia Pain Ratin Pain Location: back Pain Goal: Pain 4 or less Pain Plan: same Tomorrow's Labs & Rationales: CBC BEP
[2016-03-31 08:10] LABS: ABSOLUTE BASOPHIL COUNT 0 /CUMM (0.0-0.2); ABSOLUTE EOSINOPHIL COUNT 0.4 /CUMM (0.0-0.7); ABSOLUTE GRANULOCYTE CT 4.8 /CUMM (1.4-6.5); ABSOLUTE LYMPH COUNT 0.7 /CUMM (1.2-3.4); ABSOLUTE MONOCYTE COUNT 0.6 /CUMM (0.10-0.60); BASOPHIL % 0.5 % (0.0-2.0); EOSINOPHIL % 6.7 % (0-5); GRANULOCYTE % 72.9 % (42.2-75.2); HEMATOCRIT 28.2 % (42-52); MEAN CORPUSCULAR HGB 28.8 PG (27.0-31.0); MEAN CORPUSCULAR HGB CONC 33.7 G/DL (33.0-37.0); MEAN CORPUSCULAR VOLUME 85.3 FL (80.0-94.0); PLATELET COUNT 327 /CUMM (130-400); RBC DISTRIBUTION WIDTH 15.1 % (11.5-14.5); RED BLOOD CELL CT 3.31 /CUMM (4.70-6.10); WHITE BLOOD CELL COUNT 6.6 /CUMM (4.8-10.8)
[2016-03-31 09:22] VITALS: BP 146/70
--- NOTE | 2016-03-31 10:21 | Cons- Cardiology ---
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 The patient is a resident of a correction and he notes that his roommate was having upper respiratory symptoms and was treated for pneumonia. The patient began experiencing shortness of breath approximately 24 hours prior to admission. He denies chest discomfort. He does have a cough productive of sputum. He also noted fever and chills. Due to worsening symptoms he was brought to the emergency room for evaluation and found to be hypoxic with an O2 saturation of 85% on room air. The patient continues to be a smoker. EKG demonstrated atrial fibrillation. There is no history documented of atrial fibrillation the past. Allergies/Medications Allergies: Coded Allergies: NO KNOWN ALLERGIES (01/19/14) Home Med List: Acetaminophen 650 MG SUPP.RECT 1 SUPP [place] Q4H PRN PAIN/TEMP>/100 (Reported) Acetaminophen (Mapap) 325 MG TABLET 2 TAB PO Q4H PRN PAIN/TEMP>/100 (Reported ) Aspirin E.c. (Ecotrin) 325 MG TAB 1 TAB PO DAILY HEART/CIRCULATION (Reported) Atorvastatin Calcium (Lipitor) 20 MG TABLET 1 TAB PO DAILY CHOLESTEROL ( Reported) Budesonide/Formoterol Fumarate (Symbicort 160-4.5 Mcg Inhaler) 160 MCG-4.5 MCG/ ACTUATION HFA.AER.AD 2 PUF INH BID COPD (Reported) Dextran 70/Hypromellose (Artificial Tears) 1 EACH DROPERETTE 1 DROP OP TID BOTH EYES (Reported) Ergocalciferol (Vitamin D2) (Vitamin D2) 50,000 UNIT CAPSULE 1 CAP PO Q30D SUPPLEMENT (Reported) Escitalopram Oxalate (Lexapro) 5 MG TABLET 1 TAB PO DAILY ANXIETY/DEPRESSION (Reported) Fleet Enema (Fleet Enema (ER) 135 Ml) 19 GRAM-7 GRAM/118 ML ENEMA 1 E [place] DAILY NEEDED PRN CONSTIPATION (Reported) Insulin Detemir (Levemir) 100 UNIT/ML VIAL 26 UNITS SC 1800 DM (Reported) Insulin Detemir (Levemir) 100 UNIT/ML VIAL 35 UNITS SC QAM DM (Reported) Insulin Lispro (Humalog) 100 UNIT/ML VIAL 2 UNITS SC TIDAC DM (Reported) Lisinopril (Prinivil) 10 MG TABLET 1 TAB PO DAILY BP (Reported) Mag Hydrox/Al Hydrox/Simeth (Almacone Liquid) 200 MG-200 MG-20 MG/5 ML ORAL.SUSP 30 ML PO Q8H PRN DYSPEPSIA (Reported) Magnesium Hydroxide (Milk Of Magnesia 30ML) 400 MG/5 ML ORAL.SUSP 30 ML PO DAILY NEEDED PRN CONSTIPATION (Reported) Metformin HCl (Glucophage) 1,000 MG TABLET 1 TAB PO BID DM (Reported) Tiotropium [place] (Spiriva) 18 MCG CAP.W.DEV 1 CAP INH DAILY COPD (Reported) Current Medications: Current Medications Sig/Frank Start time Last Medication Dose Route Stop Time Status Admin Acetaminophen 650 MG Q4P PRN 03/30 2230 AC PO Acetaminophen 650 MG Q6P PRN 03/30 1945 AC PO Acetaminophen 1,000 MG Q8 PRN 03/30 1730 DC N/A 1 UNIT IV Albuterol Sulfate 3 ML ONCE ONE 03/30 1545 DC 03/30 INH 03/30 1546 1548 Albuterol Sulfate 3 ML ONCE ONE 03/30 1545 DC INH 03/30 1546 Albuterol Sulfate 3 ML ONCE ONE 03/30 1545 DC INH 03/30 1546 Albuterol Sulfate 3 ML ONCE ONE 03/30 1545 DC INH 03/30 1546 Amlodipine Besylate 5 MG DAILY 03/31 1000 AC 03/31 PO 0300 Artificial Tears 2 GTT TID PRN 03/31 0733 AC OPH Artificial Tears 2 GTT TID 03/30 2224 DC OPH Aspirin Buffered 325 MG DAILY 03/31 1000 AC PO Atorvastatin Calcium 20 MG DAILY 03/31 1000 AC PO Ceftazidime 1,000 MG IQ8 03/31 0000 AC 03/31 IV 0027 Ceftazidime 0 .STK-MED ONE 03/30 1646 DC .ROUTE Ceftazidime 1,000 MG ONCE ONE 03/30 1645 DC 03/30 IV 03/30 1646 1721 Escitalopram Oxalate 5 MG DAILY 03/31 1000 AC PO Guaifenesin 600 MG Q12 03/31 1000 AC PO Heparin Sodium 5,000 UNIT Q8 03/30 2200 AC 03/31 (Porcine) SC 0600 Insulin Aspart 0 TIDAC 03/31 0800 AC SC Insulin Detemir 20 UNITS BID 03/31 1000 AC SC Ipratropium [place] 2.5 ML ONCE ONE 03/30 1545 DC 03/30 INH 03/30 1546 1548 Labetalol HCl 0 .STK-MED ONE 03/30 2142 DC IV Labetalol HCl 5 MG ONCE ONE 03/30 2130 DC IV 03/30 2131 Lisinopril 10 MG DAILY 03/31 1000 CAN PO Metoprolol Tartrate 5 MG ONCE ONE 03/30 2115 CAN IV 03/30 211 Morphine Sulfate 2 MG Q6P PRN 03/30 1730 DC IV Tiotropium [place] 1 PUF DAILY 03/31 1000 AC INH Tramadol HCl 50 MG Q8P PRN 03/30 1730 DC PO Vancomycin HCl 1,000 MG DAILY 03/31 1000 AC Sodium Chloride 250 ML IV Vancomycin HCl 0 .STK-MED ONE 03/30 1646 DC .ROUTE Vancomycin HCl 1,000 MG ONCE ONE 03/30 1645 DC 03/30 Sodium Chloride 250 ML IV 03/30 1744 1721 Review of Systems Review of Systems: Eyes no blurred or double vision Ears no deafness or ringing Nose and throat no recurrent sinusitis Lungs per history of present illness Heart per history of present illness Abdomen no nausea vomiting Musculoskeletal occasional muscle and joint pains Psych no anxiety or depression Neuro without recurrent headache or seizures Endocrine no heat or cold intolerance Past History Travel History Traveled to [place] past 21 day No Medical History Blood Transfusion Hx: No Neurological: NONE EENT: NONE Cardiovascular: hypertension, ELEVATED CHOLESTEROL Respiratory: NONE Gastrointestinal: NONE Hepatic: NONE Renal: NONE Musculoskeletal: R ABOVE KNEE AMPUTATION L BELOW KNEE AMPUTATION L below knee amputation Psychiatric: NONE Endocrine: DIABETES (TYPE II) Blood Disorders: NONE Cancer(s): 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 [facility] Facility Services at Home: Nursing Smoking Status: Current Everyday Smoker ETOH Use: denies use Illicit Drug Use: denies illicit drug use Functional Ability Ambulation: wheelchair Exam & Diagnostic Data Vital Signs and I&O Vital Signs Date Time Temp Pulse Resp B/P Pulse O2 O2 Flow FiO2 Ox Delivery Rate 03/31 0922 97.7 80 18 146/70 93 Nasal 3.0L Cannula 03/31 0300 80 180/80 03/30 2300 94 Nasal 2.0L Cannula 03/30 2226 98.5 81 20 172/80 96 Nasal 3.0L Cannula 03/30 2148 97.1 79 22 168/74 03/30 214 97.1 78 22 168/74 96 Nasal 2.0L Cannula 03/30 2054 97.0 80 22 180/80 97 Nasal 2.0L Cannula 03/30 1758 98.3 78 24 170/80 94 Nasal 2.0L Cannula 03/30 1600 98 Nasal 2.0L Cannula 03/30 1600 93 Nasal 2.0L Cannula 03/30 1536 97.2 88 20 184/77 94 Nasal 2.0L Cannula Intake & Output 03/31 1600 03/31 0800 03/31 0000 03/30 1600 03/30 0800 03/30 0000 Intake Total 200 450 0 Output Total 900 300 Balance -700 150 0 Intake, IV 250 Intake, Oral 200 200 0 Output, Urine 900 300 Patient 267 lb 269 lb Weight Physical Exam: Patient is a well-developed well-nourished male appearing in no acute distress HEENT is unremarkable Neck is supple there is no JVD Lungs scattered rhonchi bilaterally Heart regular rhythm S1 and S2 are normal no gallops or rubs 1/6 soft ejection murmur left sternal border Abdomen bowel sounds positive Extremities bilateral amputation Labs/Bairon Results: Laboratory Tests 03/31 03/30 0615 2300 Chemistry Sodium (137 - 145 mmol/L) 140 Potassium (3.5 - 5.1 mmol/L) 4.9 Chloride (98 - 107 mmol/L) 104 Carbon Dioxide (22 - 30 mmol/L) 23 Anion Gap (5 - 16) 14 BUN (9 - 20 mg/dL) 37 H Creatinine (0.7 - 1.2 mg/dL) 1.7 H Estimated GFR (>60 ml/min) 40 L BUN/Creatinine Ratio (7 - 25 %) 21.8 Troponin I (<0.11 ng/ml) 0.07 Cancelled Hematology CBC w Diff NO MAN DIFF REQ WBC (4.8 - 10.8 /CUMM) 6.6 RBC (4.70 - 6.10 /CUMM) 3.31 L Hgb (14.0 - 18.0 G/DL) 9.5 L Hct (42 - 52 %) 28.2 L MCV (80.0 - 94.0 FL) 85.3 MCH (27.0 - 31.0 PG) 28.8 RDW (11.5 - 14.5 %) 15.1 H Plt Count (130 - 400 /CUMM) 327 MPV (7.4 - 10.4 FL) 8.0 Gran % (42.2 - 75.2 %) 72.9 Lymphocytes % (20.5 - 51.1 %) 11.1 L Monocytes % (1.7 - 9.3 %) 8.8 Eosinophils % (0 - 5 %) 6.7 H Basophils % (0.0 - 2.0 %) 0.5 Absolute Granulocytes (1.4 - 6.5 /CUMM) 4.8 Absolute Lymphocytes (1.2 - 3.4 /CUMM) 0.7 L Absolute Monocytes (0.10 - 0.60 /CUMM) 0.6 Absolute Eosinophils (0.0 - 0.7 /CUMM) 0.4 Absolute Basophils (0.0 - 0.2 /CUMM) 0 PUBS MCHC (33.0 - 37.0 G/DL) 33.7 03/30 03/30 1755 1555 Chemistry Sodium (137 - 145 mmol/L) 138 Potassium (3.5 - 5.1 mmol/L) 4.9 Chloride (98 - 107 mmol/L) 102 Carbon Dioxide (22 - 30 mmol/L) 24 Anion Gap (5 - 16) 12 BUN (9 - 20 mg/dL) 45 H Creatinine (0.7 - 1.2 mg/dL) 1.9 H Estimated GFR (>60 ml/min) 35 L BUN/Creatinine Ratio (7 - 25 %) 23.7 Glucose (65 - 99 mg/dL) 157 H Calcium (8.4 - 10.2 mg/dL) 8.7 Total Bilirubin (0.2 - 1.3 mg/dL) 0.6 AST (17 - 59 U/L) 22 ALT (21 - 72 U/L) 31 Alkaline Phosphatase (< 127 U/L) 152 H Troponin I (<0.11 ng/ml) 0.06 Jhy-G-Vnnsiizvorm Pept (<125 pg/mL) 6780 H Total Protein (6.3 - 8.2 g/dL) 7.3 Albumin (3.5 - 5.0 g/dL) 3.4 L Globulin (1.9 - 4.2 gm/dL) 3.9 Albumin/Globulin Ratio (1.1 - 2.2 %) 0.9 L Coagulation PT (9.4 - 12.5 SEC) 12.9 H INR (0.90 - 1.17) 1.23 H APTT (25 - 37 SEC) 32 Hematology CBC w Diff NO MAN DIFF REQ WBC (4.8 - 10.8 /CUMM) 9.3 RBC (4.70 - 6.10 /CUMM) 3.37 L Hgb (14.0 - 18.0 G/DL) 9.6 L Hct (42 - 52 %) 29.2 L MCV (80.0 - 94.0 FL) 86.5 MCH (27.0 - 31.0 PG) 28.6 RDW (11.5 - 14.5 %) 15.2 H Plt Count (130 - 400 /CUMM) 322 MPV (7.4 - 10.4 FL) 7.5 Gran % (42.2 - 75.2 %) 85.7 H Lymphocytes % (20.5 - 51.1 %) 5.8 L Monocytes % (1.7 - 9.3 %) 5.7 Eosinophils % (0 - 5 %) 2.6 Basophils % (0.0 - 2.0 %) 0.2 Absolute Granulocytes (1.4 - 6.5 /CUMM) 8.0 H Absolute Lymphocytes (1.2 - 3.4 /CUMM) 0.5 L Absolute Monocytes (0.10 - 0.60 /CUMM) 0.5 Absolute Eosinophils (0.0 - 0.7 /CUMM) 0.2 Absolute Basophils (0.0 - 0.2 /CUMM) 0 PUBS MCHC (33.0 - 37.0 G/DL) 33.1 Urines Urinalysis LIGHT H Urine Color (YEL,AMB,STR) YEL Urine Clarity (CLEAR) CLEAR Urine pH (5.0 - 8.0) 6.0 Ur Specific [place] (1.001 - 1.035) 1.020 Urine Protein (NEG,<30 MG/DL) 100 H Urine Ketones (NEG) NEG Urine Nitrite (NEG) NEG Urine Bilirubin (NEG) NEG Urine Urobilinogen (0.1 - 1.0 EU/dl) 0.2 Ur Leukocyte Esterase (NEG) NEG Ur Microscopic SEDIMENT EXAMINED Urine RBC (0 - 5 /HPF) 1-3 Urine WBC (0 - 2 /HPF) RARE Ur Epithelial Cells (NONE,FEW) RARE Hyaline Casts (0/LPF) 1-3 H Urine Mucus (FEW,NONE) RARE Urine Hemoglobin (NEG) MOD H Urine Glucose (N MG/DL) NEG 03/30 1550 Blood Gas pH (7.35 - 7.45 PH) 7.40 pCO2 (35 - 45 TORR) 33 L pO2 (80 - 100 TORR) 65 L HCO3 (21 - 28 MEQ/L) 20 L ABG O2 Sat (Measured) (>96.0 %) 92.0 L P-50 (Temp Corrected) N Carboxyhemoglobin (1.5 - 5.0 %) 1.0 L O2 Concentration % 2L Temperature (97.0 - 100.0 FARH) 97.2 O2 Delivery Method NC Miscellaneous Phlebotomy Draw Site RIGHT RADIAL Diagnostic Data EKG Results Atrial fibrillation with rapid ventricular response nonspecific ST-T changes CXR Results IMPRESSION: 1. Chronic peribronchial interstitial thickening -- likely bronchitis -- and pulmonary emphysema. 2. New, hazy opacity in right upper lobe is suspicious for pneumonia. 3. Linear opacities of atelectasis in lower lobes remain similar in appearance compared to 10/20/2014. Assessment/Plan Assessment/Plan 1. Paroxysmal atrial fibrillation documented on EKG in the emergency room. May indeed be secondary to his pneumonia although I am certainly concerned given the fact that he has had an amputation of his finger felt to be possibly embolic although no atrial fibrillation was documented at that time. 2. Severe peripheral vascular disease as noted above 3. Hypertension 4. Diabetes 5. Pneumonia healthcare facility acquired 6. COPD Recommendations 1. Would obtain an echocardiogram to assess his LV function along with left atrial size 2. Had a long discussion with the patient regarding his paroxysmal atrial fibrillation and risk of stroke. I am concerned in that he did possibly have an embolic phenomenon requiring amputation of his finger that he has previously undocumented atrial fibrillation that may have been the etiology. I therefore have recommended that he start oral anticoagulation. He is aware of the potential risks and complications. His creatinine clearance is 68 therefore would start Xarelto 20 mg daily. 3. Continue antibiotics for pneumonia 4. If there is no contraindication from the pulmonary standpoint would start metoprolol 12.5 mg BID Thank you for allowing [facility] ([place], [place]) [facility] to participate in the care of your patient. Consult Acknowledgment - Thank you for your consult request.
--- NOTE | 2016-03-31 15:43 | Cons- Pulmonary ---
General Information and HPI Consulting Request Date of Consult: 03/31/16 Requested By: Med team History of Present Illness: 70-year-old male with PMH of insulin dependent DM, hypertension, right above the knee amputation, left below the knee amputation, care home resident of 2 years, presented with increased shortness of breath. On Wednesday, he noted that his breathing is worse, and it would take him an hour to get up the stairs, he was feeling extremely short of breath rolling his wheelchair from his bed to his bathroom, which is a distance of 8 feet. He also notes some chest pain especially when he coughs. His cough is not productive of sputum. Of note, his roommate also has been having upper respiratory symptoms and he was being treated with pneumonia. In the ED, his o2 sat was found to be 85% on RA and improved to 94% on 3L O2. He has had sig copd and lung nodules and per pts request he did not want any further work up done. He is still a current smoker, smoking about 8 cigarette/day, but was smoking 2.5 ppd for more than 50 years. On ROS, he denies fever, chills, orthopnea (uses 2 pillows to sleep, and he seems to prefer to sleep sitting up). He reports feeling more tired, feeling constipated, and some chest tightness. Constitutional: Reports: malaise. Denies: chills, fever. EENTM: Denies: visual changes. Cardiovascular: Reports: chest pain. Denies: edema, orthopena, palpitations, peripheral edema, syncope. Respiratory: Reports: cough, short of breath. Denies: orthopnea, sputum production, wheezing. GI: Reports: constipation. Denies: abdominal pain, bloating, diarrhea. Allergies/Medications Allergies: Coded Allergies: NO KNOWN ALLERGIES (01/19/14) Home Med List: Acetaminophen 650 MG SUPP.RECT 1 SUPP NE Q4H PRN PAIN/TEMP>/100 (Reported) Acetaminophen (Mapap) 325 MG TABLET 2 TAB PO Q4H PRN PAIN/TEMP>/100 (Reported ) Aspirin E.c. (Ecotrin) 325 MG TAB 1 TAB PO DAILY HEART/CIRCULATION (Reported) Atorvastatin Calcium (Lipitor) 20 MG TABLET 1 TAB PO DAILY CHOLESTEROL ( Reported) Budesonide/Formoterol Fumarate (Symbicort 160-4.5 Mcg Inhaler) 160 MCG-4.5 MCG/ ACTUATION HFA.AER.AD 2 PUF INH BID COPD (Reported) Dextran 70/Hypromellose (Artificial Tears) 1 EACH DROPERETTE 1 DROP OP TID BOTH EYES (Reported) Ergocalciferol (Vitamin D2) (Vitamin D2) 50,000 UNIT CAPSULE 1 CAP PO Q30D SUPPLEMENT (Reported) Escitalopram Oxalate (Lexapro) 5 MG TABLET 1 TAB PO DAILY ANXIETY/DEPRESSION (Reported) Fleet Enema (Fleet Enema (ER) 135 Ml) 19 GRAM-7 GRAM/118 ML ENEMA 1 E NE DAILY NEEDED PRN CONSTIPATION (Reported) Insulin Detemir (Levemir) 100 UNIT/ML VIAL 26 UNITS SC 1800 DM (Reported) Insulin Detemir (Levemir) 100 UNIT/ML VIAL 35 UNITS SC QAM DM (Reported) Insulin Lispro (Humalog) 100 UNIT/ML VIAL 2 UNITS SC TIDAC DM (Reported) Lisinopril (Prinivil) 10 MG TABLET 1 TAB PO DAILY BP (Reported) Mag Hydrox/Al Hydrox/Simeth (Almacone Liquid) 200 MG-200 MG-20 MG/5 ML ORAL.SUSP 30 ML PO Q8H PRN DYSPEPSIA (Reported) Magnesium Hydroxide (Milk Of Magnesia 30ML) 400 MG/5 ML ORAL.SUSP 30 ML PO DAILY NEEDED PRN CONSTIPATION (Reported) Metformin HCl (Glucophage) 1,000 MG TABLET 1 TAB PO BID DM (Reported) Tiotropium [place] (Spiriva) 18 MCG CAP.W.DEV 1 CAP INH DAILY COPD (Reported) Review of Systems Review of Systems Constitutional: Reports: see HPI. 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 [facility] Facility Services at Home: Nursing Smoking Status: Current Some Day Smoker ETOH Use: denies use Illicit Drug Use: denies illicit drug use Functional Ability Ambulation: wheelchair Exam & Diagnostic Data Last 24 Hrs of Vital Signs/I&O Vital Signs Date Time Temp Pulse Resp B/P Pulse O2 O2 Flow FiO2 Ox Delivery Rate 03/31 1112 Nasal 3.0L Cannula 03/31 0922 97.7 80 18 146/70 93 Nasal 3.0L Cannula 03/31 0300 80 180/80 03/30 2300 94 Nasal 2.0L Cannula 03/30 2226 98.5 81 20 172/80 96 Nasal 3.0L Cannula 03/30 2148 97.1 79 22 168/74 03/30 2146 97.1 78 22 168/74 96 Nasal 2.0L Cannula 03/30 2054 97.0 80 22 180/80 97 Nasal 2.0L Cannula 03/30 1758 98.3 78 24 170/80 94 Nasal 2.0L Cannula 03/30 1600 98 Nasal 2.0L Cannula 03/30 1600 93 Nasal 2.0L Cannula 03/30 1536 97.2 88 20 184/77 94 Nasal 2.0L Cannula Intake & Output 03/31 1600 03/31 0800 03/31 0000 Intake Total 200 450 Output Total 900 300 Balance -700 150 Intake, IV 250 Intake, Oral 200 200 Output, Urine 900 300 Patient 267 lb Weight Last 48 Hrs of Labs/Bairon: Laboratory Tests 03/31/16 0615: Anion Gap 14, Estimated GFR 40 L, BUN/Creatinine Ratio 21.8, Iron 25 L, TIBC 256 L, Ferritin 226.0, Troponin I 0.07, Vitamin B12 438, Folate > 20.0 H, CBC w Diff NO MAN DIFF REQ, RBC 3.31 L, MCV 85.3, MCH 28.8, RDW 15.1 H, MPV 8.0, Gran % 72.9, Lymphocytes % 11.1 L, Monocytes % 8.8, Eosinophils % 6.7 H, Basophils % 0.5, Absolute Granulocytes 4.8, Absolute Lymphocytes 0.7 L, Absolute Monocytes 0.6, Absolute Eosinophils 0.4, Absolute Basophils 0, PUBS MCHC 33.7 03/30/16 2300: Troponin I Cancelled 03/30/16 1755: Urinalysis LIGHT H, Urine Color YEL, Urine Clarity CLEAR, Urine pH 6.0, Ur Specific [place] 1.020, Urine Protein 100 H, Urine Ketones NEG, Urine Nitrite NEG, Urine Bilirubin NEG, Urine Urobilinogen 0.2, Ur Leukocyte Esterase NEG, Ur Microscopic SEDIMENT EXAMINED, Urine RBC 1-3, Urine WBC RARE, Ur Epithelial Cells RARE, Hyaline Casts 1-3 H, Urine Mucus RARE, Urine Hemoglobin MOD H, Urine Glucose NEG 03/30/16 1555: Anion Gap 12, Estimated GFR 35 L, BUN/Creatinine Ratio 23.7, Glucose 157 H, Calcium 8.7, Total Bilirubin 0.6, AST 22, ALT 31, Alkaline Phosphatase 152 H, Troponin I 0.06, Oti-W-Urzytadgaaz Pept 6780 H, Total Protein 7.3, Albumin 3.4 L, Globulin 3.9, Albumin/Globulin Ratio 0.9 L, PT 12.9 H, INR 1.23 H, APTT 32 , CBC w Diff NO MAN DIFF REQ, RBC 3.37 L, MCV 86.5, MCH 28.6, RDW 15.2 H, MPV 7.5, Gran % 85.7 H, Lymphocytes % 5.8 L, Monocytes % 5.7, Eosinophils % 2.6, Basophils % 0.2, Absolute Granulocytes 8.0 H, Absolute Lymphocytes 0.5 L, Absolute Monocytes 0.5, Absolute Eosinophils 0.2, Absolute Basophils 0, PUBS MCHC 33.1 03/30/16 1550: pH 7.40, pCO2 33 L, pO2 65 L, HCO3 20 L, ABG O2 Sat (Measured) 92.0 L, P-50 (Temp Corrected) N, Carboxyhemoglobin 1.0 L, O2 Concentration % 2L, Temperature 97.2, O2 Delivery Method NC, Phlebotomy Draw Site RIGHT RADIAL Microbiology 03/30 1754 URINE ROUT: Legionella Antigen - COMP 03/30 1754 URINE ROUT: Streptococcus pneumoniae Antigen (M - COMP Assessment/Plan Impression/Plan: Physical Exam General Appearance Alert, Oriented X3, Cooperative, No Acute Distress, sitting comfortably on the bed in no distress Skin dry crusted lesions on both arms reportedly due to skin cancer treatment (7 years ago) HEENT Atraumatic, PERRLA, Mucous Membr. moist/pink Neck Supple Cardiovascular Regular Rate, Normal S1, Normal S2, No Murmurs, Gallops, Rubs Lungs diffuse decreased breath sound, with mild wheezing Abdomen Normal Bowel Sounds, Soft, sig distended with faint bs Neurological Normal Speech SIGNIFICANT DATA EKG showed transient atrial fibrillation CT scan of the chest reviewed from September 2014 each had shown significant emphysema granulomatous lung disease numerous calcified mediastinal hilar lymph node with irregular parenchymal and pleural opacities suggestive of inflammatory versus malignant process patient had declined PET scan Chest x-ray showed chronic peribronchial interstitial thickening Hazy opacity in the right upper lobe atelectasis in the lower lobe which worse present before Previous CT scan of the abdomen and pelvis had shown no significant intra- abdominal process Creatinine 1.7 which is chronically elevated white count not elevated no significant left shift this morning he does have mild eosinophilia is ABG 740/33 /65. His previous echocardiogram showed normal ejection fraction IMPRESSION This a gentleman who is an active smoker with severe emphysema as noted in the CAT scan now comes in with cough wheezing shortness of breath suggestive of * Mild COPD exacerbation with probable pulmonary infiltrates suggestive of pneumonia. However he does not have high fever or increasing WBC and significant pneumonia seems less likely * Paroxysmal atrial fibrillation * Ongoing smoking unable to quit smoking despite his amputations * Severe peripheral vascular disease with amputation * Severe abdominal distention with probable severe constipation which is also contributing to his shortness of breath this needs to be evaluated now and should be treated aggressively * Chronic kidney disease with stage III chronic kidney disease with worsening mild renal insufficiency * Diabetes, hypertension, hyperlipidemia, ongoing smoking * Previous lung nodules rule out malignancy RECOMMENDATION * Continues antibiotics and can be switched to intravenous ceftriaxone * Abdominal flat plate * Check his magnesium and keep it more than 2 * Aggressive bowel regimen patient has severe constipation versus significant ileus patient would require senna, docusate, MiraLAX, suppository if the x-ray does not reveal anything significant * Aggressive sugar control * Continue his current bronchodilator regimen with albuterol nebulizer as needed , Spiriva 1 puff once a day * As his abdomen appears to be distended we'll hold any corticosteroids for now * Okay to use low-dose beta soco * Once he is little better will get a CT scan of the chest to evaluate for the lung nodules which were seen before. * Smoking cessation counseling was done. Consult Acknowledgment - Thank you for your consult request.
--- NOTE | 2016-03-31 16:21 | RADIOLOGY REPORT ---
EXAMINATION: XR PORTABLE ABDOMEN CLINICAL INFORMATION: Abdominal distention, severe constipation COMPARISON: CT 10/20/2014 TECHNIQUE: 2 KUB views of the abdomen. FINDINGS: There is scattered bowel gas throughout the abdomen and pelvis without significant dilation to suggest obstruction or ileus. Moderate stool is present throughout the colon. The visualized lung bases are grossly clear. Degenerative changes are present in the spine and hips. Bilateral iliac stents are noted. IMPRESSION: Moderate stool throughout the colon. No significant gaseous dilation to suggest obstruction or ileus.
[2016-03-31 16:30] VITALS: BP 202/90
[2016-03-31 23:00] VITALS: BP 148/88
--- NOTE | 2016-04-01 07:04 | PN- Att Addend ---
Attending Addendum Attending Brief Note Laboratory Tests 04/01 0615 Chemistry Sodium Pending Potassium Pending Chloride Pending Carbon Dioxide Pending Anion Gap Pending BUN Pending Creatinine Pending BUN/Creatinine Ratio Pending Hematology CBC w Diff Pending WBC Pending RBC Pending Hgb Pending Hct Pending MCV Pending MCH Pending RDW Pending Plt Count Pending MPV Pending PUBS MCHC Pending Microbiology Date/Time Procedure - Status Source Growth 03/31 1800 Respiratory Culture - CAN LOWER RESP Cancelled: POOR QUALITY SPECIMEN, MOERATE SQUAMOUS CELLS OBSERVED, 03/31 1800 Gram Stain - CAN LOWER RESP Cancelled: POOR QUALITY SPECIMEN, MOERATE SQUAMOUS CELLS OBSERVED, Vital Signs Date Time Temp Pulse Resp B/P Pulse O2 O2 Flow FiO2 Ox Delivery Rate 04/01 0232 93 Nasal 4.0L Cannula 04/01 0000 Nasal 3.0L Cannula 03/31 2300 98.8 79 22 148/88 95 Nasal 3.0L Cannula 03/31 2106 87 148/88 03/31 1750 85 186/90 03/31 1630 97.9 80 18 202/90 94 Nasal Cannula 03/31 1607 94 Nasal 3.0L Cannula 03/31 1600 Nasal 3.0L Cannula 03/31 1112 Nasal 3.0L Cannula 03/31 0922 97.7 80 18 146/70 93 Nasal 3.0L Cannula 03/31 0800 93 Nasal 3.0L Cannula Intake & Output 04/01 0800 04/01 0000 03/31 1600 Intake Total 350 1560 Output Total 700 1175 Balance -350 385 Intake, IV 0 280 Intake, Oral 350 1280 Number 0 0 Bowel Movements Output, Urine 700 1175 Attending note. Complains of for shortness of breath still has got increased abdominal distention. No bowel moment since a few days. S1-S2 is normal Lungs shows expiratory wheezing with diminished breath sounds at both bases. Abdomen shows marked distention and tympanic throughout the whole belly bowel sounds are sluggish. Assessment #1 is shortness of breath probably due to exacerbation of mild COPD and secondary to marked abdominal distention rule out obstruction. We will obtain a CT scan of the abdomen and pelvis with oral contrast. A surgical consult. #2 is continue current management of respiratory patient with the [facility]. #3 sputum culture shows moderate amount of squamous cells will have pulmonary do an evaluation. Agree with CT scan of the chest to rule out the the lung nodules.
--- NOTE | 2016-04-01 07:29 | PN- Housestaff ---
See Addendum Subjective Follow-up For: HCAP DIABETES single episode of afib Tele-Events Since Last Visit: NSR, 77-8, no events Subjective: Pattient was visited and examined this morning. Complains of abdominal distention worsening the severe last night. Oxygen demands increased from 2 L to 5 L last night. Review of Systems Constitutional: Denies: chills, diaphoresis, fever, malaise, weakness, unexplained weight loss. EENTM: Denies: blurred vision, double vision, visual changes, eye pain, eye drainage, eye tearing, icterus, ear discharge, ear pain, ear redness, hearing changes, nasal congestion, epistaxis, nasal pain, throat pain, throat swelling, mouth pain, tooth pain. Cardiovascular: Denies: chest pain, edema, orthopena, palpitations, peripheral edema, syncope. Respiratory: Denies: cough, hemoptysis, orthopnea, short of breath, sputum production, stridor, wheezing. Gastrointestinal: Reports: bloating, distention. Denies: abdominal pain, constipation, diarrhea, bowel incontinence, melena, nausea, bloody stool, changes in stool, vomiting, steatorrhea. Objective Last 24 Hrs of Vital Signs/I&O Vital Signs Date Time Temp Pulse Resp B/P Pulse O2 O2 Flow FiO2 Ox Delivery Rate 04/01 1227 78 142/70 04/01 1226 78 142/70 04/01 1014 93 Nasal 4.5L Cannula 04/01 0823 98.1 64 20 160/70 94 Nasal 3.0L Cannula 04/01 0232 93 Nasal 4.0L Cannula 04/01 0000 Nasal 3.0L Cannula 03/31 2300 98.8 79 22 148/88 95 Nasal 3.0L Cannula 03/31 2106 87 148/88 03/31 1750 85 186/90 03/31 1630 97.9 80 18 202/90 94 Nasal Cannula 03/31 1607 94 Nasal 3.0L Cannula 03/31 1600 Nasal 3.0L Cannula Intake & Output 04/01 1600 04/01 0800 04/01 0000 Intake Total 330 350 Output Total 750 700 Balance -420 -350 Intake, IV 30 0 Intake, Oral 300 350 Number 0 0 Bowel Movements Output, Urine 750 700 Physical Exam General Appearance: Alert, Oriented X3, Cooperative, Mild Distress Skin: No Rashes, No Breakdown, No Significant Lesion HEENT: Atraumatic, PERRLA, EOMI, Mucous Membr. moist/pink Neck: Supple, No JVD Cardiovascular: Normal S1, Normal S2, No Murmurs Lungs: Clear to Auscultation, Normal Air Movement Abdomen: Normal Bowel Sounds, No Tenderness, distension Neurological: Normal Speech, Strength at 5/5 X4 Ext, Normal Tone Extremities: No Cyanosis, No Edema Vascular: Normal Pulses, Pulses Symmetrical Current Medications: Current Medications Sig/Frank Start time Last Medication Dose Route Stop Time Status Admin Acetaminophen 650 MG Q4P PRN 03/30 2230 AC PO Acetaminophen 650 MG Q6P PRN 03/30 1945 AC PO Albuterol Sulfate 3 ML EVERY 4 HRS/AWAKE 03/31 1200 AC 04/01 INH 0933 Amlodipine Besylate 5 MG ONCE ONE 03/31 1630 DC 03/31 PO 03/31 1631 1750 Amlodipine Besylate 5 MG DAILY 03/31 1000 AC 04/01 PO 1227 Artificial Tears 2 GTT TID PRN 03/31 0733 AC OPH Aspirin Buffered 325 MG DAILY 03/31 1000 AC 04/01 PO 1227 Atorvastatin Calcium 20 MG DAILY 03/31 1000 AC 04/01 PO 1226 Bisacodyl 10 MG ONCE PRN 03/31 1500 AC KS Ceftazidime 1,000 MG IQ8 03/31 0000 AC 04/01 IV 0839 Escitalopram Oxalate 5 MG DAILY 03/31 1000 AC 04/01 PO 1226 Guaifenesin 600 MG Q12 03/31 1000 AC 04/01 PO 1226 Heparin Sodium 5,000 UNIT Q8 03/30 2200 AC 04/01 (Porcine) SC 0644 Insulin Aspart 0 TIDAC 03/31 0800 AC 04/01 SC 1223 Insulin Detemir 15 UNITS BID 03/31 2200 AC 04/01 SC 1224 Magnesium Hydroxide 30 ML ONE ONE 03/31 1500 DC 03/31 PO 03/31 1501 1748 Metoprolol Tartrate 12.5 MG BID 03/31 2200 DC PO Metoprolol Tartrate 12.5 MG BID 03/31 2200 AC 04/01 PO 1226 Polyethylene Glycol 17 GM DAILY 03/31 1454 AC 04/01 PO 1225 Rivaroxaban 20 MG DAILY 03/31 1515 AC 04/01 PO 1226 Senna/Docusate Sodium 1 TAB BID PRN 03/31 1500 AC 04/01 PO 1227 Sodium Chloride 2 SPRAY Q4P PRN 04/01 0245 AC JERRY Tiotropium [place] 1 PUF DAILY 03/31 1000 AC 04/01 INH 1227 Vancomycin HCl 1,000 MG DAILY 03/31 1000 AC 04/01 Sodium Chloride 250 ML IV 1225 Last 24 Hrs of Lab/Bair[place] Results Last 24 Hrs of Labs/Mics: Laboratory Tests 04/01/16 0615: Anion Gap 11, Estimated GFR 37 L, BUN/Creatinine Ratio 17.8, CBC w Diff NO MAN DIFF REQ, RBC 3.27 L, MCV 86.4, MCH 28.9, RDW 14.6 H, MPV 7.9, Gran % 73.7, Lymphocytes % 10.8 L, Monocytes % 9.5 H, Eosinophils % 5.5 H, Basophils % 0.5 , Absolute Granulocytes 5.7, Absolute Lymphocytes 0.8 L, Absolute Monocytes 0.7 H, Absolute Eosinophils 0.4, Absolute Basophils 0, PUBS MCHC 33.4 Microbiology 03/31 1800 LOWER RESP: Respiratory Culture - CAN Cancelled: POOR QUALITY SPECIMEN, MOERATE SQUAMOUS CELLS OBSERVED, 03/31 1800 LOWER RESP: Gram Stain - CAN Cancelled: POOR QUALITY SPECIMEN, MOERATE SQUAMOUS CELLS OBSERVED, Assessment/Plan Assessment: 70-year-old male with PMH of insulin dependent DM, daily smoker,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 Patient reported that he is having cough for couple of weeks and now he is having shortness of breath on exertion she is getting worse during one or 2 days. Reports that his room mate has symptoms of URI. He denies any nausea, vomiting, chest pain but reports chest tightness. He denies any fevers, chills, dizziness, changes in urinary or bowel habits(except constipation). Vital signs on admission showed elevated blood pressure with no fevers and O2 saturation over 92% on 3 L. upon admission patient briefly went into atrial fibrillation and Converted back to sinus. Initial EKG shows sinus rhythm, 88, QTC 489, no acute ST-T changes ABG showed HCO3 20, PO2 65, CO2 33, BMP 6780, hemoglobin 9.6, creatinine 1.9 cxr: IMPRESSION: 1. Chronic peribronchial interstitial thickening -- likely bronchitis -- and pulmonary emphysema. 2. New, hazy opacity in right upper lobe is suspicious for pneumonia. 3. Linear opacities of atelectasis in lower lobes remain similar in appearance compared to 10/20/2014. Assessment -Diabetes -Multilobar pneumonia from nursing facility- borad-spectrum Abx coverage with Vanco and Ceftazidime; to cover Health care associated bacteria icluding Gram negatives -Brief episode of atrial fibrillation -ARF on CKD -COPD and chronic smoker Plan -continue on ceftaz and vanc, mucinex, -24 hour telemetry, EKG, trops : unremarkable -uncotrolled blood suger; change diet -TRC nebs with spiriva -Diabetic diet, long-acting(hald dose) and short-acting insulin with accuchecks -Stop lisinopril for CKD, cr is getting better 1.7 -Hyperkalemia: EKG, Calcium glucconate, if had bowel movement give one dose kayexalate -Continue Lexapro -Urine legionella, strep, blood cultures, sputum cultures -Full code, DVT prophylaxis subcutaneous heparin, diabetic diet -Continue aspirin Problem List: 1. COPD exacerbation 2. Pneumonia 3. Healthcare associated bacterial pneumonia Pain Ratin Pain Location: abdominal Pain Goal: Pain 4 or less Pain Plan: tylenol Tomorrow's Labs & Rationales: cbc bep hyperkalemina SRIDEVI
[2016-04-01 07:58] LABS: ABSOLUTE BASOPHIL COUNT 0 /CUMM (0.0-0.2); ABSOLUTE EOSINOPHIL COUNT 0.4 /CUMM (0.0-0.7); ABSOLUTE GRANULOCYTE CT 5.7 /CUMM (1.4-6.5); ABSOLUTE LYMPH COUNT 0.8 /CUMM (1.2-3.4); ABSOLUTE MONOCYTE COUNT 0.7 /CUMM (0.10-0.60); BASOPHIL % 0.5 % (0.0-2.0); EOSINOPHIL % 5.5 % (0-5); GRANULOCYTE % 73.7 % (42.2-75.2); HEMATOCRIT 28.2 % (42-52); MEAN CORPUSCULAR HGB 28.9 PG (27.0-31.0); MEAN CORPUSCULAR HGB CONC 33.4 G/DL (33.0-37.0); MEAN CORPUSCULAR VOLUME 86.4 FL (80.0-94.0); MEAN PLATELET VOLUME 7.9 FL (7.4-10.4); PLATELET COUNT 311 /CUMM (130-400); RBC DISTRIBUTION WIDTH 14.6 % (11.5-14.5); RED BLOOD CELL CT 3.27 /CUMM (4.70-6.10); WHITE BLOOD CELL COUNT 7.7 /CUMM (4.8-10.8)
[2016-04-01 08:23] VITALS: BP 160/70
--- NOTE | 2016-04-01 09:35 | PN- Pulmonary ---
Subjective HPI/Critical Care Issues: Still has sig abd distention No bm noted Dyspnea better Fatigue improving No sig wheezing Objective Current Medications: Current Medications Sig/Frank Start time Last Medication Dose Route Stop Time Status Admin Acetaminophen 650 MG Q4P PRN 03/30 2230 AC PO Acetaminophen 650 MG Q6P PRN 03/30 1945 AC PO Albuterol Sulfate 3 ML EVERY 4 HRS/AWAKE 03/31 1200 AC 04/01 INH 0231 Amlodipine Besylate 5 MG ONCE ONE 03/31 1630 DC 03/31 PO 03/31 1631 1750 Amlodipine Besylate 5 MG DAILY 03/31 1000 AC 03/31 PO 0300 Artificial Tears 2 GTT TID PRN 03/31 0733 AC OPH Aspirin Buffered 325 MG DAILY 03/31 1000 AC 03/31 PO 1023 Atorvastatin Calcium 20 MG DAILY 03/31 1000 AC 03/31 PO 1023 Bisacodyl 10 MG ONCE PRN 03/31 1500 AC IN Ceftazidime 1,000 MG IQ8 03/31 0000 AC 04/01 IV 0839 Escitalopram Oxalate 5 MG DAILY 03/31 1000 AC 03/31 PO 1023 Guaifenesin 600 MG Q12 03/31 1000 AC 03/31 PO 2106 Heparin Sodium 5,000 UNIT Q8 03/30 2200 AC 04/01 (Porcine) SC 0644 Insulin Aspart 0 TIDAC 03/31 0800 AC 03/31 SC 1807 Insulin Detemir 15 UNITS BID 03/31 2200 AC 03/31 SC 2106 Insulin Detemir 20 UNITS BID 03/31 1000 DC SC Magnesium Hydroxide 30 ML ONE ONE 03/31 1500 DC 03/31 PO 03/31 1501 1748 Metoprolol Tartrate 12.5 MG BID 03/31 2200 DC PO Metoprolol Tartrate 12.5 MG BID 03/31 2200 AC 03/31 PO 2106 Polyethylene Glycol 17 GM DAILY 03/31 1454 AC 03/31 PO 1748 Rivaroxaban 20 MG DAILY 03/31 1515 AC 03/31 PO 2106 Senna/Docusate Sodium 1 TAB BID PRN 03/31 1500 AC PO Sodium Chloride 2 SPRAY Q4P PRN 04/01 0245 AC JERRY Tiotropium [place] 1 PUF DAILY 03/31 1000 AC 03/31 INH 1023 Vancomycin HCl 1,000 MG DAILY 03/31 1000 AC 03/31 Sodium Chloride 250 ML IV 1023 Vital Signs & I&O Last 24 Hrs of Vitals and I&O: Vital Signs Date Time Temp Pulse Resp B/P Pulse O2 O2 Flow FiO2 Ox Delivery Rate 04/01 0823 98.1 64 20 160/70 94 Nasal 3.0L Cannula 04/01 0232 93 Nasal 4.0L Cannula 04/01 0000 Nasal 3.0L Cannula 03/31 2300 98.8 79 22 148/88 95 Nasal 3.0L Cannula 03/31 2106 87 148/88 03/31 1750 85 186/90 03/31 1630 97.9 80 18 202/90 94 Nasal Cannula 03/31 1607 94 Nasal 3.0L Cannula 03/31 1600 Nasal 3.0L Cannula 03/31 1112 Nasal 3.0L Cannula Intake & Output 04/01 1600 04/01 0800 04/01 0000 Intake Total 200 350 Output Total 450 700 Balance -250 -350 Intake, IV 0 0 Intake, Oral 200 350 Number 0 0 Bowel Movements Output, Urine 450 700 Impression/Plan Impression/Plan Impression/Plan: Physical Exam General Appearance Alert, Oriented X3, Cooperative, No Acute Distress, sitting comfortably on the bed in no distress Skin dry crusted lesions on both arms reportedly due to skin cancer treatment (7 years ago) HEENT Atraumatic, PERRLA, Mucous Membr. moist/pink Neck Supple Cardiovascular Regular Rate, Normal S1, Normal S2, No Murmurs, Gallops, Rubs Lungs diffuse decreased breath sound, with mild wheezing Abdomen Normal Bowel Sounds, Soft, sig distended with faint bs Neurological Normal Speech SIGNIFICANT DATA EKG showed transient atrial fibrillation CT scan of the chest reviewed from September 2014 each had shown significant emphysema granulomatous lung disease numerous calcified mediastinal hilar lymph node with irregular parenchymal and pleural opacities suggestive of inflammatory versus malignant process patient had declined PET scan Chest x-ray showed chronic peribronchial interstitial thickening Hazy opacity in the right upper lobe atelectasis in the lower lobe which worse present before Previous CT scan of the abdomen and pelvis had shown no significant intra- abdominal process Creatinine 1.7 which is chronically elevated white count not elevated no significant left shift this morning he does have mild eosinophilia is ABG 740/33 /65. His previous echocardiogram showed normal ejection fraction IMPRESSION This a gentleman who is an active smoker with severe emphysema as noted in the CAT scan now comes in with cough wheezing shortness of breath suggestive of * Mild COPD exacerbation with probable pulmonary infiltrates suggestive of pneumonia. However he does not have high fever or increasing WBC and significant pneumonia seems less likely * Paroxysmal atrial fibrillation * Ongoing smoking unable to quit smoking despite his amputations * Severe peripheral vascular disease with amputation * Severe abdominal distention with probable severe constipation which is also contributing to his shortness of breath this needs to be evaluated now and should be treated aggressively * Chronic kidney disease with stage III chronic kidney disease with worsening mild renal insufficiency * Diabetes, hypertension, hyperlipidemia, ongoing smoking * Previous lung nodules rule out malignancy RECOMMENDATION * Intravenous ceftriaxone * CT CHEST ABD AND PELVIS WITH PO CONTRAST * Check his magnesium and keep it more than 2 * Aggressive bowel regimen * Aggressive sugar control * Continue his current bronchodilator regimen with albuterol nebulizer as needed , Spiriva 1 puff once a day * As his abdomen appears to be distended we'll hold any corticosteroids for now * Okay to use low-dose beta soco * Smoking cessation counseling was done.
--- NOTE | 2016-04-01 15:01 | CT SCAN REPORT ---
EXAMINATION: CT CHEST, ABDOMEN AND PELVIS WITH CONTRAST CLINICAL INFORMATION: Dyspnea, lung nodules. COMPARISON: CT scan of the chest 10/22/2014, and CT scan of the abdomen and pelvis 10/20/2014. TECHNIQUE: Multidetector volumetric imaging was performed from the thoracic inlet through the pubic symphysis following administration of oral contrast. Sagittal and coronal reformatted images were obtained on the technologist's workstation. Axial MIP volume rendering provided. DLP: 1739.57 mGy-cm. FINDINGS: CHEST: [employer]: There is a peripherally dense foreign body over the skin in the medial left gluteal region. The lungs are hyperinflated. LUNGS: The study redemonstrates extensive emphysematous changes predominantly in the upper zones, and more extensive on the right than the left. There are linear areas of opacity at the lower zones posteriorly, consistent with atelectasis. The central pulmonary airways are patent. There is atelectasis adjacent to the right pleural effusion. There is an irregular density in the right upper lobe, which measures 1.4 x 1.1 cm (image [id number], series 3). It appears unchanged. A nodule which is cephalad and lateral to this nodule is unchanged and measures 0.8 cm (image [id number]). There has been interval decrease in the area of opacity adjacent to the pleura posteriorly in the left upper lobe which now measures 1.8 x 1.1 cm (image [id number]). There are patchy areas of ground-glass opacification in both lungs. MEDIASTINUM: The thyroid gland is not enlarged. There are multiple superior mediastinal and paratracheal lymph nodes. These have increased in size. For example, an AP window lymph node now measures 2.2 x 1.3 cm, increased from 1.4 x 0.9 cm (image 22/134, series 2). Also there has been interval increase in a right paratracheal lymph node which now measures 1.3 x 1.0, increased from 1.1 x 0.7 cm (image 18/134). In addition, there are multiple bilateral subcarinal and parahilar lymph nodes which have increased in size. There are bilateral calcified hilar lymph nodes, similar compared to the prior study. There is no pericardial effusion. There is extensive atheromatous calcification of the aorta. There are coronary artery calcifications. The heart is not enlarged. PLEURA: There is a new small/moderate pleural effusion on the right with adjacent atelectasis. Mild pleural thickening in the left upper lobe posteriorly appears unchanged, with small punctate calcifications. CHEST WALL/AXILLA: There is no axillary lymphadenopathy. The chest wall appears normal. ABDOMEN/PELVIS: LIVER, GALLBLADDER, BILIARY TREE: The liver is normal in size, shape, and attenuation. No focal hepatic lesion or biliary ductal dilatation is present. The gallbladder is unremarkable with no evidence of discrete radiopaque gallstones, gallbladder wall thickening, or pericholecystic inflammatory changes. There is mildly dense dependent debris within the gallbladder. PANCREAS: The pancreas is relatively atrophic. SPLEEN: The spleen is normal in size and density. ADRENAL GLANDS: The adrenal glands are not enlarged. KIDNEYS AND URETERS: The kidneys are normal in size, shape, and attenuation. No hydronephrosis or hydroureter or calculi seen. No perinephric stranding. There is a 3 mm nonobstructive new renal calculus toward the upper pole of the right kidney posteriorly. The study redemonstrates atheromatous calcification of the renal vessels. BLADDER: The bladder is well distended. GASTROINTESTINAL TRACT: The stomach and small bowel are unremarkable. There are clips in the right lower quadrant consistent with prior appendicectomy. The large bowel is unremarkable. ABDOMINAL WALL: No discrete hernias are demonstrated. There are areas of increased density in the subcutaneous fat in the anterior abdomen, which may be sequelae of subcutaneous injections. LYMPH NODES: There are small epigastric lymph nodes, which appear similar compared to the prior study. No pelvic or retroperitoneal lymphadenopathy is seen. VASCULAR: There is extensive atheromatous calcification of the aorta and its branches. Vascular stents are noted in the bilateral iliac arteries, unchanged. There is stable scarring in the right groin. PELVIC VISCERA: The prostate gland is at the upper limits of normal in size. There is no free fluid in the pelvis. OSSEOUS STRUCTURES: The study redemonstrates bilateral osteoarthritic changes in the hips, slightly worse compared to the prior study. There are multilevel degenerative changes in the thoracic and lumbar spine. IMPRESSION: 1. There has been interval increase in the size of multiple mediastinal lymph nodes. 2. There has been interval development of a small/moderate pleural effusion on the right with adjacent atelectasis. 3. There is significant extensive emphysema. There are multifocal irregular nodular densities. These are findings stable to slightly smaller. 4. There is mild dependent debris within the gallbladder lumen. 5. There are extensive degenerative changes in the osseous structures.
--- NOTE | 2016-04-01 16:17 | PN- Cardiology ---
Subjective Subjective: Denies chest pain or palpitations. Abdomen feels full but not very painful. Minimal dyspnea at this time. Has not had BM but passes gas. Objective Vital Signs and I&Os Vital Signs Date Time Temp Pulse Resp B/P Pulse O2 O2 Flow FiO2 Ox Delivery Rate 04/01 1227 78 142/70 04/01 1226 78 142/70 04/01 1014 93 Nasal 4.5L Cannula 04/01 0823 98.1 64 20 160/70 94 Nasal 3.0L Cannula 04/01 0800 93 Nasal 4.5L Cannula 04/01 0232 93 Nasal 4.0L Cannula 04/01 0000 Nasal 3.0L Cannula 03/31 2300 98.8 79 22 148/88 95 Nasal 3.0L Cannula 03/31 2106 87 148/88 03/31 1750 85 186/90 03/31 1630 97.9 80 18 202/90 94 Nasal Cannula Intake & Output 04/01 1600 04/01 0800 04/01 0000 03/31 1600 03/31 0800 03/31 0000 Intake Total 170 462 4542 200 450 Output Total 424 506 6077 900 300 Balance -420 -350 385 -700 150 Intake, IV 30 0 280 250 Intake, Oral 670 991 3791 200 200 Number 0 0 0 Bowel Movements Output, Urine 861 965 2592 900 300 Patient 267 lb Weight Physical Exam: General: No distress at rest. Eyes: No obvious scleral icterus. HEENT: No jugular venous distention or abnormal jugular venous pulsations. Cardiovascular: Normal intensity S1/S2. Regular. Respiratory: decreased air entry at the right base Abdomen: distended with hypoactive bowel sounds, not tender to palpation Musculoskeletal: amputations noted Skin: Warm Current Medications: Current Medications Sig/Frank Start time Last Medication Dose Route Stop Time Status Admin Acetaminophen 650 MG Q4P PRN 03/30 2230 AC PO Acetaminophen 650 MG Q6P PRN 03/30 1945 AC PO Albuterol Sulfate 3 ML EVERY 4 HRS/AWAKE 03/31 1200 AC 04/01 INH 1329 Amlodipine Besylate 5 MG ONCE ONE 03/31 1630 DC 03/31 PO 03/31 1631 1750 Amlodipine Besylate 5 MG DAILY 03/31 1000 AC 04/01 PO 1227 Artificial Tears 2 GTT TID PRN 03/31 0733 AC OPH Aspirin Buffered 325 MG DAILY 03/31 1000 AC 01/04 PO 1227 Atorvastatin Calcium 20 MG DAILY 03/31 1000 AC 04/01 PO 1226 Bisacodyl 10 MG ONCE ONE 04/01 1330 DC 04/01 IN 04/01 1331 1445 Bisacodyl 10 MG ONCE PRN 03/31 1500 AC IN Calcium Gluconate 1 GM ONCE ONE 04/01 1430 DC Sodium Chloride 100 ML IV 04/01 1529 Ceftazidime 1,000 MG IQ8 03/31 0000 AC 04/01 IV 0839 Escitalopram Oxalate 5 MG DAILY 03/31 1000 AC 04/01 PO 1226 Guaifenesin 600 MG Q12 03/31 1000 AC 04/01 PO 1226 Heparin Sodium 5,000 UNIT Q8 03/30 2200 AC 04/01 (Porcine) SC 0644 Insulin Aspart 0 TIDAC 03/31 0800 AC 04/01 SC 1223 Insulin Detemir 15 UNITS BID 03/31 2200 AC 04/01 SC 1224 Metoprolol Tartrate 6.25 MG BID 04/01 1325 AC PO Metoprolol Tartrate 12.5 MG BID 03/31 2200 DC PO Metoprolol Tartrate 12.5 MG BID 03/31 2200 AC 04/01 PO 1226 Polyethylene Glycol 17 GM DAILY 03/31 1454 AC 04/01 PO 1225 Rivaroxaban 20 MG DAILY 03/31 1515 AC 04/01 PO 1226 Senna/Docusate Sodium 1 TAB BID PRN 03/31 1500 AC 04/01 PO 1227 Sodium Chloride 2 SPRAY Q4P PRN 04/01 0245 AC JERRY Tiotropium [place] 1 PUF DAILY 03/31 1000 AC 04/01 INH 1227 Vancomycin HCl 1,000 MG DAILY 03/31 1000 AC 04/01 Sodium Chloride 250 ML IV 1225 Results Last 48 Hrs of Labs/Mics: Laboratory Tests 04/01/16 0615: Anion Gap 11, Estimated GFR 37 L, BUN/Creatinine Ratio 17.8, CBC w Diff NO MAN DIFF REQ, RBC 3.27 L, MCV 86.4, MCH 28.9, RDW 14.6 H, MPV 7.9, Gran % 73.7, Lymphocytes % 10.8 L, Monocytes % 9.5 H, Eosinophils % 5.5 H, Basophils % 0.5 , Absolute Granulocytes 5.7, Absolute Lymphocytes 0.8 L, Absolute Monocytes 0.7 H, Absolute Eosinophils 0.4, Absolute Basophils 0, PUBS MCHC 33.4 03/31/16 0615: Anion Gap 14, Estimated GFR 40 L, BUN/Creatinine Ratio 21.8, Magnesium 2.1, Iron 25 L, TIBC 256 L, Ferritin 226.0, Troponin I 0.07, Vitamin B12 438, Folate > 20.0 H, CBC w Diff NO MAN DIFF REQ, RBC 3.31 L, MCV 85.3, MCH 28.8, RDW 15.1 H, MPV 8.0, Gran % 72.9, Lymphocytes % 11.1 L, Monocytes % 8.8, Eosinophils % 6.7 H, Basophils % 0.5, Absolute Granulocytes 4.8, Absolute Lymphocytes 0.7 L, Absolute Monocytes 0.6, Absolute Eosinophils 0.4, Absolute Basophils 0, PUBS MCHC 33.7 03/30/16 2300: Troponin I Cancelled 03/30/161754: Urinalysis LIGHT H, Urine Color YEL, Urine Clarity CLEAR, Urine pH 6.0, Ur Specific [place] 1.020, Urine Protein 100 H, Urine Ketones NEG, Urine Nitrite NEG, Urine Bilirubin NEG, Urine Urobilinogen 0.2, Ur Leukocyte Esterase NEG, Ur Microscopic SEDIMENT EXAMINED, Urine RBC 1-3, Urine WBC RARE, Ur Epithelial Cells RARE, Hyaline Casts 1-3 H, Urine Mucus RARE, Urine Hemoglobin MOD H, Urine Glucose NEG Microbiology 03/30 1754 URINE ROUT: Legionella Antigen - COMP 03/30 1754 URINE ROUT: Streptococcus pneumoniae Antigen (M - COMP Recent Imaging Studies: CT scan: IMPRESSION: 1. There has been interval increase in the size of multiple mediastinal lymph nodes. 2. There has been interval development of a small/moderate pleural effusion on the right with adjacent atelectasis. 3. There is significant extensive emphysema. There are multifocal irregular nodular densities. These are findings stable to slightly smaller. 4. There is mild dependent debris within the gallbladder lumen. 5. There are extensive degenerative changes in the osseous structures. Telemetry tracings personally reviewed, shows SR with PACS and period of afib last night Assessment/Plan Assessment/Plan 1. New PAF on telemetry, oral AC started 2. Severe peripheral vascular disease with prior amputations 3. Hypertension 4. Diabetes 5. COPD with PNA, ? right sided pleural effusion 6. Constipation 7. CKD with mild hyperkalemia 8. Active smoker PAF noted on telemetry, now in sinus rhythm. Continue full AC with Xarelto, may need dose adjustment depending on calculated CrCl. Continue oral Lopressor (not bronchospastic by exam today). Echo is pending but given mild hyperkalemia with CKD and ? right sided pleural effusion (by CT) would consider starting on Lasix 20 mg PO daily. Monitor BP. Critical importance of smoking cessation discussed. Continue daily ASA and statin for documented vascular disease. Does not appear to have bowel obstruction but remains constipated. Keep on telemetry for now. Check repeat lipid panel and maximize statin as tolerated (LFTs are normal currently). No evidence of surgical abdomen at this time so can continue oral AC. Richard Berry MD [facility] Continue telemetry? Yes
[2016-04-01 16:58] VITALS: BP 128/88
--- NOTE | 2016-04-02 07:02 | PN- Att Addend ---
Attending Addendum Attending Brief Note Intake & Output 04/02 0800 04/02 0000 04/01 1600 Intake Total 810 790 Output Total 500 800 Balance 310 -10 Intake, IV 150 290 Intake, Oral 660 500 Number 1 0 Bowel Movements Output, Urine 500 800 Current Medications Sig/Frank Start time Last Medication Dose Route Stop Time Status Admin Acetaminophen 650 MG Q4P PRN 03/30 2230 AC PO Acetaminophen 650 MG Q6P PRN 03/30 1945 AC PO Albuterol Sulfate 3 ML EVERY 4 HRS/AWAKE 03/31 1200 AC 04/01 INH 2145 Amlodipine Besylate 5 MG DAILY 03/31 1000 AC 04/01 PO 1227 Artificial Tears 2 GTT TID PRN 03/31 0733 AC OPH Aspirin Buffered 325 MG DAILY 03/31 1000 AC 04/01 PO 1227 Atorvastatin Calcium 20 MG DAILY 03/31 1000 AC 04/01 PO 1226 Bisacodyl 10 MG ONCE ONE 04/01 1330 DC 04/01 IL 04/01 1331 1445 Bisacodyl 10 MG ONCE PRN 03/31 1500 AC IL Calcium Gluconate 1 GM ONCE ONE 04/01 1430 DC 04/01 Sodium Chloride 100 ML IV 04/01 1529 1723 Ceftazidime 1,000 MG IQ8 03/31 0000 DC 04/01 IV 0839 Ceftriaxone Sodium 2,000 MG DAILY 04/02 1000 AC IV Escitalopram Oxalate 5 MG DAILY 03/31 1000 AC 04/01 PO 1226 Furosemide 20 MG DAILY 04/02 1000 AC PO Guaifenesin 600 MG Q12 03/31 1000 AC 04/01 PO 2058 Heparin Sodium 5,000 UNIT Q8 03/30 2200 DC 04/01 (Porcine) SC 0644 Insulin Aspart 0 TIDAC 03/31 0800 AC 04/01 SC 1223 Insulin Detemir 15 UNITS BID 03/31 2200 AC 04/01 SC 205 Metoprolol Tartrate 6.25 MG BID 04/01 1325 DC PO Metoprolol Tartrate 12.5 MG BID 03/31 2200 AC 04/01 PO 2057 Nystatin 1 JUANI BID 04/01 2200 AC 04/01 TOP 2058 Polyethylene Glycol 17 GM DAILY 03/31 1454 AC 04/01 PO 1225 Rivaroxaban 20 MG DAILY 03/31 1515 AC 04/01 PO 1226 Senna/Docusate Sodium 1 TAB BID PRN 03/31 1500 AC 04/01 PO 1227 Sodium Chloride 2 SPRAY Q4P PRN 04/01 0245 AC 04/01 JERRY 2101 Sodium Phosphate 1 UNIT ONCE ONE 04/01 1630 DC 04/01 IL 04/01 1631 1723 Tiotropium [place] 1 PUF DAILY 03/31 1000 AC 04/01 INH 1227 Vancomycin HCl 1,000 MG DAILY 03/31 1000 DC 04/01 Sodium Chloride 250 ML IV 1225 Microbiology Date/Time Procedure - Status Source Growth 04/01 1944 Respiratory Culture - CAN LOWER RESP Cancelled: NUMBER OF SQUAMOUS CELLS INDICATES POOR QUALITY SPECIMEN 04/01 1944 Gram Stain - CAN LOWER RESP Cancelled: NUMBER OF SQUAMOUS CELLS INDICATES POOR QUALITY SPECIMEN 04/01 1722 Body Fluid Culture - CAN BODY FLUID Cancelled: Cancelled via OE: Duplicate Order 04/01 1722 Gram Stain - CAN BODY FLUID Cancelled: Cancelled via OE: Duplicate Order 04/01 1722 Body Fluid Culture - CAN BODY FLUID Cancelled: Cancelled via OE: Duplicate Order 04/01 1722 Gram Stain - CAN BODY FLUID Cancelled: Cancelled via OE: Duplicate Order Vital Signs Date Time Temp Pulse Resp B/P Pulse O2 O2 Flow FiO2 Ox Delivery Rate 04/02 0000 Nasal 4.5L Cannula 04/01 2330 98.1 65 20 97 04/01 2057 62 152/64 04/01 1845 92 Nasal 4.5L Cannula 04/01 1658 98.1 65 20 128/88 91 Nasal Cannula 04/01 1600 Nasal 4.5L Cannula 04/01 1227 78 142/70 04/01 1226 78 142/70 04/01 1014 93 Nasal 4.5L Cannula 04/01 0823 98.1 64 20 160/70 94 Nasal 3.0L Cannula 04/01 0800 93 Nasal 4.5L Cannula Intake & Output 04/02 0800 04/02 0000 04/01 1600 Intake Total 810 790 Output Total 500 800 Balance 310 -10 Intake, IV 150 290 Intake, Oral 660 500 Number 1 0 Bowel Movements Output, Urine 500 800 Attending note. Abdominal distention is markedly decreased, he had a CT scan of the abdomen no acute pathology after the CAT scan he had a couple of large BMs and he feels relieved. Vital signs are stable Coughing and wheezing is markedly decreased. Paroxysmal atrial fibrillation on anticoagulation. S1-S2 is normal Lungs shows expiratory wheezing with diminished air entry bilaterally CT scan of the arch abdomen showed presence of the mediastinal lymph nodes there increases slice 2.2 x 1.3 cm right paratracheal lymph node IS enlarged 1.1 5.7 cm. Assessment pneumonia nearly resolved. 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 If stable possible discharge tomorrow
[2016-04-02 08:00] VITALS: BP 132/60
--- NOTE | 2016-04-02 08:54 | Discharge Summary ---
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 Initial EKG shows sinus rhythm, 88, QTC 489, no acute ST-T changes and transient episode of atrial fibrillation/atrial flutter, which Converted back to sinus spontaneously. ABG showed HCO3 20, PO2 65, CO2 33, BMP 6780, hemoglobin 9.6, creatinine 1.9 cxr: IMPRESSION: 1. Chronic peribronchial interstitial thickening -- likely bronchitis -- and pulmonary emphysema. 2. New, hazy opacity in right upper lobe is suspicious for pneumonia. 3. Linear opacities of atelectasis in lower lobes remain similar in appearance compared to 10/20/2014. List of active problems during this admission: 1. Hypoxic hypercapnic respiratory failure due to COPD exacerbation and possibility of HCAP Initially patient was covered with broad-spectrum IV antibiotics considering the risk of healthcare associated pneumonia (gram negatives). All the lobar pneumonia was not confirmed by CT scan. Patient's antibiotic coverage was switched to IV ceftriaxone. Vital signs improved, white BC trended down, patient continuously wheezing, he was restarted on by mouth prednisone for 5 days. O2 demands progressively decreased patient is sitting on exertion improved he was a stable to be discharged back to nursing home facility. Transient, paroxysmal atrial fibrillation/atrial flutter Considerable risk of thromboembolic events, thus patient was started on lifetime anticoagulation with Xarelto and rate control with Lopressor 12.5 mg twice a day. Hyperkalemia; CKD and right sided pleural effusion (by CT) Patient was started on by mouth Lasix 20 mg. Echocardiography was obtained which showed. Max dose of Lipitor and continuing aspirin were also considered. And also the importance of smoking cessation was discussed with the patient ARF on CKD Patient's creatinine remains 0.5 mg above his baseline. Lisinopril was initially held because of the acute renal failure on top of chronic kidney disease. Plan to discharge the patient off lisinopril, on amlodipine and metoprolol for hypertension. Code status After a discussion with Dr. Underwood, patient, with complete awareness of full aspects and consquences of his descion, he decided to be DNR/DNI for the future. Complications: Atrial fibrillation/atrial flutter Allergies: Coded Allergies: NO KNOWN ALLERGIES (01/19/14) Disposition Summary Disposition Principal Diagnosis: Pneumonia Atrial fibrillation/atrial flutter Additional Diagnosis: Uncontrolled sugar in the setting of diabetes Constipation hyperkalemia in the setting of CKD Discharge Disposition: SNF Discharge Instructions General Discharge Information Code Status: Full Code Patient's Diet: Diabetes diets Heart healthy diet Patient's Activity: Bedrest As tolerated Follow-Up Instructions/Appts: #1 please follow-up with your primary care physician within one week after discharge #2 please follow-up with your poiser balance within 1 week upon discharge #3 acute renal failure; please check electrolytes within 48 hours and follow with her primary care physician Medications at Discharge Discharge Medications: Stop taking the following medications: Lisinopril (Prinivil) 10 MG TABLET ORAL DAILY Continue taking these medications: Aspirin E.c. (Ecotrin) 325 MG TAB 1 Tablet ORAL DAILY Comments: Last Taken:10/23/14 Time:1000 Insulin Detemir (Levemir) 100 UNIT/ML VIAL 26 Units Inject into fatty tissue 1800 Comments: PER [facility] Insulin Detemir (Levemir) 100 UNIT/ML VIAL 35 Units Inject into fatty tissue Every Morning Comments: PER [facility] Ergocalciferol (Vitamin D2) (Vitamin D2) 50,000 UNIT CAPSULE 1 Capsule ORAL ONCE A MONTH Comments: PER [facility] - THE 16 OF EVERY MONTH Acetaminophen (Acetaminophen) 650 MG SUPP.RECT 1 SUPPOSITORY RECTALLY Q4H as needed for PAIN/TEMP>/100 Comments: PER [facility] - NTE 3GM/24H Fleet Enema (Fleet Enema (ER) 135 Ml) 19 GRAM-7 GRAM/118 ML ENEMA 1 Enema RECTALLY DAILY NEEDED as needed for CONSTIPATION Acetaminophen (Mapap) 325 MG TABLET 2 Tablet ORAL Q4H as needed for PAIN/TEMP>/100 Comments: PER [facility] *NTE 3GM IN 24HR* Magnesium Hydroxide (Milk Of Magnesia 30ML) 400 MG/5 ML ORAL.SUSP 30 Milliliters ORAL DAILY NEEDED as needed for CONSTIPATION Insulin Lispro (Humalog) 100 UNIT/ML VIAL 2 Units Inject into fatty tissue 3 TIMES DAILY BEFORE MEALS Comments: PER [facility] Budesonide/Formoterol Fumarate (Symbicort 160-4.5 Mcg Inhaler) 160 MCG-4.5 MCG/ ACTUATION HFA.AER.AD 2 Puff Inhale through mouth TWICE DAILY Comments: PER [facility] Metformin HCl (Glucophage) 1,000 MG TABLET 1 Tablet ORAL TWICE DAILY Comments: PER [facility] Tiotropium [place] (Spiriva) 18 MCG CAP.W.DEV 1 Capsule Inhale through mouth DAILY Comments: PER [facility] Escitalopram Oxalate (Lexapro) 5 MG TABLET 1 Tablet ORAL DAILY Comments: PER [facility] Dextran 70/Hypromellose (Artificial Tears) 1 EACH DROPERETTE 1 DROP OPHTHALMIC THREE TIMES DAILY Comments: PER [facility] Mag Hydrox/Al Hydrox/Simeth (Almacone Liquid) 200 MG-200 MG-20 MG/5 ML ORAL.SUSP 30 Milliliters ORAL Q8H as needed for DYSPEPSIA Comments: PER [facility] *O/A MAALOX* Start taking the following new medications: Moxifloxacin HCl (Moxifloxacin HCl) 400 MG TABLET 1 Tablet ORAL DAILY Days = 4 No Refills Rivaroxaban (Xarelto) 10 MG TABLET 2 Tablet ORAL DAILY Days = 30 Refills = 1 Metoprolol Tartrate (Metoprolol Tartrate) 25 MG TABLET 1 Half Tablet ORAL TWICE DAILY Days = 30 Refills = 1 Amlodipine Besylate (Amlodipine Besylate) 5 MG TABLET 1 Milligram ORAL DAILY Days = 28 No Refills Prednisone (Prednisone) 20 MG TABLET 1 Tablet ORAL DAILY Days = 3 No Refills Atorvastatin Calcium (Atorvastatin Calcium) 40 MG TABLET 1 Tablet ORAL DAILY Qty = 30 Refills = 1 Copies To: RISHABH SORIANO,ZEN Gutierrez
[2016-04-02 08:57] LABS: ABSOLUTE BASOPHIL COUNT 0 /CUMM (0.0-0.2); ABSOLUTE EOSINOPHIL COUNT 0.4 /CUMM (0.0-0.7); ABSOLUTE GRANULOCYTE CT 5.4 /CUMM (1.4-6.5); ABSOLUTE LYMPH COUNT 0.8 /CUMM (1.2-3.4); ABSOLUTE MONOCYTE COUNT 0.6 /CUMM (0.10-0.60); BASOPHIL % 0.3 % (0.0-2.0); EOSINOPHIL % 5.9 % (0-5); GRANULOCYTE % 74.7 % (42.2-75.2); HEMATOCRIT 30.3 % (42-52); MEAN CORPUSCULAR HGB 28.7 PG (27.0-31.0); MEAN CORPUSCULAR HGB CONC 32.9 G/DL (33.0-37.0); MEAN CORPUSCULAR VOLUME 87.1 FL (80.0-94.0); MEAN PLATELET VOLUME 7.7 FL (7.4-10.4); PLATELET COUNT 360 /CUMM (130-400); RBC DISTRIBUTION WIDTH 14.8 % (11.5-14.5); RED BLOOD CELL CT 3.48 /CUMM (4.70-6.10); WHITE BLOOD CELL COUNT 7.3 /CUMM (4.8-10.8)
--- NOTE | 2016-04-02 09:02 | PN- Housestaff ---
Subjective Follow-up For: pneumonia-HCAP Complaints: dyspnea on excertion Tele-Events Since Last Visit: no tele events NSRR 72 bpm Subjective: Patient was visited and examined this morning. He does not offer any particular complaint except for improving, improving dyspnea on exertion. Vital signs are stable. He is on 4 L and a half of oxygen nasal cannula. Review of Systems Constitutional: Denies: chills, diaphoresis, fever, malaise, weakness, unexplained weight loss. EENTM: Denies: blurred vision, double vision, visual changes, eye pain, eye drainage, eye tearing, icterus, ear discharge, ear pain, ear redness, hearing changes, nasal congestion, epistaxis, nasal pain, throat pain, throat swelling, mouth pain, tooth pain. Cardiovascular: Denies: chest pain, edema, orthopena, palpitations, peripheral edema, syncope. Respiratory: Reports: cough, short of breath, sputum production. Denies: see HPI, hemoptysis , orthopnea, stridor, wheezing. Gastrointestinal: Denies: abdominal pain, bloating, constipation, diarrhea, distention, bowel incontinence, melena, nausea, bloody stool, changes in stool, vomiting, steatorrhea. Genitourinary: Denies: discharge, dysuria, frequency, hematuria, hesitation, nocturia, pain, urgency. Objective Last 24 Hrs of Vital Signs/I&O Vital Signs Date Time Temp Pulse Resp B/P Pulse O2 O2 Flow FiO2 Ox Delivery Rate 04/02 0000 Nasal 4.5L Cannula 04/01 2330 98.1 65 20 97 04/01 2057 62 152/64 04/01 1845 92 Nasal 4.5L Cannula 04/01 1658 98.1 65 20 128/88 91 Nasal Cannula 04/01 1600 Nasal 4.5L Cannula 04/01 1227 78 142/70 04/01 1226 78 142/70 04/01 1014 93 Nasal 4.5L Cannula Intake & Output 04/02 1600 04/02 0800 04/02 0000 Intake Total 240 810 Output Total 1450 500 Balance -1210 310 Intake, IV 150 Intake, Oral 240 660 Number 1 Bowel Movements Output, Urine 1450 500 Physical Exam General Appearance: Alert, Oriented X3, Cooperative, No Acute Distress Skin: scaly skin lesions Cardiovascular: Normal S1, Normal S2, No Murmurs, Gallops, Rubs Lungs: Clear to Auscultation, Normal Air Movement Abdomen: Soft, No Tenderness Neurological: Normal Gait, Normal Speech, Strength at 5/5 X4 Ext, Normal Tone Extremities: No Clubbing, No Cyanosis, No Edema Vascular: Normal Pulses, Pulses Symmetrical Current Medications: Current Medications Sig/Frank Start time Last Medication Dose Route Stop Time Status Admin Acetaminophen 650 MG Q4P PRN 03/30 2230 AC PO Acetaminophen 650 MG Q6P PRN 03/30 1945 AC PO Albuterol Sulfate 3 ML EVERY 4 HRS/AWAKE 03/31 1200 AC 04/02 INH 0855 Amlodipine Besylate 5 MG DAILY 03/31 1000 AC 04/01 PO 1227 Artificial Tears 2 GTT TID PRN 03/31 0733 AC OPH Aspirin Buffered 325 MG DAILY 03/31 1000 AC 04/01 PO 1227 Atorvastatin Calcium 20 MG DAILY 03/31 1000 AC 04/01 PO 1226 Bisacodyl 10 MG ONCE ONE 04/01 1330 DC 04/01 NE 04/01 1331 1445 Bisacodyl 10 MG ONCE PRN 03/31 1500 AC NE Calcium Gluconate 1 GM ONCE ONE 04/01 1430 DC 04/01 Sodium Chloride 100 ML IV 04/01 1529 1723 Ceftazidime 1,000 MG IQ8 03/31 0000 DC 04/01 IV 0839 Ceftriaxone Sodium 2,000 MG DAILY 04/02 1000 AC IV Escitalopram Oxalate 5 MG DAILY 03/31 1000 AC 04/01 PO 1226 Furosemide 20 MG DAILY 04/02 1000 AC PO Guaifenesin 600 MG Q12 03/31 1000 AC 04/01 PO 2058 Heparin Sodium 5,000 UNIT Q8 03/30 2200 DC 04/01 (Porcine) SC 0644 Insulin Aspart 0 TIDAC 03/31 0800 AC 04/01 SC 1223 Insulin Detemir 15 UNITS BID 03/31 2200 AC 04/01 SC 2057 Metoprolol Tartrate 6.25 MG BID 04/01 1325 DC PO Metoprolol Tartrate 12.5 MG BID 03/31 2200 AC 04/01 PO 2057 Nystatin 1 JUANI BID 04/01 2200 AC 04/01 TOP 2058 Polyethylene Glycol 17 GM DAILY 03/31 1454 AC 04/01 PO 1225 Rivaroxaban 20 MG DAILY 03/31 1515 AC 04/01 PO 1226 Senna/Docusate Sodium 1 TAB BID PRN 03/31 1500 AC 04/01 PO 1227 Sodium Chloride 2 SPRAY Q4P PRN 04/01 0245 AC 04/01 JERRY 2101 Sodium Phosphate 1 UNIT ONCE ONE 04/01 1630 DC 04/01 NE 04/01 1631 1723 Tiotropium [place] 1 PUF DAILY 03/31 1000 AC 04/01 INH 1227 Vancomycin HCl 1,000 MG DAILY 03/31 1000 DC 04/01 Sodium Chloride 250 ML IV 1225 Last 24 Hrs of Lab/[place] Results Last 24 Hrs of Labs/Mics: Laboratory Tests 04/02/16 0740: Anion Gap 11, Estimated GFR 37 L, BUN/Creatinine Ratio 15.0, Triglycerides 150, Cholesterol 127, LDL Cholesterol, Calc 70, HDL Cholesterol 27 L, Cholesterol/ HDL Ratio 5 H 04/02/16 0710: CBC w Diff Pending, WBC Pending, RBC Pending, Hgb Pending, Hct Pending, MCV Pending, MCH Pending, RDW Pending, Plt Count Pending, MPV Pending, PUBS MCHC Pending Microbiology 04/01 1944 LOWER RESP: Respiratory Culture - CAN Cancelled: NUMBER OF SQUAMOUS CELLS INDICATES POOR QUALITY SPECIMEN 04/01 1944 LOWER RESP: Gram Stain - CAN Cancelled: NUMBER OF SQUAMOUS CELLS INDICATES POOR QUALITY SPECIMEN 04/01 1722 BODY FLUID: Body Fluid Culture - CAN Cancelled: Cancelled via OE: Duplicate Order 04/01 1722 BODY FLUID: Gram Stain - CAN Cancelled: Cancelled via OE: Duplicate Order 04/01 172 BODY FLUID: Body Fluid Culture - CAN Cancelled: Cancelled via OE: Duplicate Order 04/01 1722 BODY FLUID: Gram Stain - CAN Cancelled: Cancelled via OE: Duplicate Order Assessment/Plan Assessment: 70-year-old male with PMH of insulin dependent DM, daily smoker, and multiple comorbidities was admitted for progressive dyspnea. Chest x-ray: 1. Chronic peribronchial interstitial thickening -- likely bronchitis -- and pulmonary emphysema. 2. New, hazy opacity in right upper lobe is suspicious for pneumonia. 3. Linear opacities of atelectasis in lower lobes remain similar in appearance compared to 10/20/2014. Chest CT scan: 1. There has been interval increase in the size of multiple mediastinal lymph nodes. 2. There has been interval development of a small/moderate pleural effusion on the right with adjacent atelectasis. 3. There is significant extensive emphysema. There are multifocal irregular nodular densities. These are findings stable to slightly smaller. 4. There is mild dependent debris within the gallbladder lumen. 5. There are extensive degenerative changes in the osseous structures. Assessment -Diabetes -HCAP -ARF on CKD -COPD and chronic smoker Plan -IV ceftriaxone 2000 mg daily -Continue Xarelto for atrial fibrillation anticoagulation -uncotrolled blood suger; change diet -TRC nebs with spiriva -Diabetic diet, long-acting(hald dose) and short-acting insulin with accuchecks -Due to renal failure on CTD stop lisinopril -Constipation: Resolved -Hyperkalemia: Mostly secondary to constipation; -Continue Lexapro -Urine legionella, strep, blood cultures, sputum cultures -Full code, DVT prophylaxis subcutaneous heparin, diabetic diet -Continue aspirin Problem List: 1. Amputation of leg through tibia and fibula 2. Healthcare associated bacterial pneumonia 3. COPD exacerbation 4. Diabetes 5. Hypertension 6. Acute renal failure (ARF) Pain Ratin Pain Location: none Pain Goal: Pain 4 or less Pain Plan: tylenol Tomorrow's Labs & Rationales: cbc bep
--- NOTE | 2016-04-02 11:28 | PN- Cardiology ---
Subjective Subjective: Telemetry Sinus t\tythym. No new complaints Objective Vital Signs and I&Os Vital Signs Date Time Temp Pulse Resp B/P Pulse O2 O2 Flow FiO2 Ox Delivery Rate 04/02 09 140/66 04/02 0919 140/66 04/02 0910 92 Nasal 4.5L Cannula 04/02 799 94 Nasal 4.5L Cannula 04/02 799 98.4 72 20 132/60 94 Nasal 4.5L Cannula 04/02 0000 Nasal 4.5L Cannula 04/01 2330 98.1 65 20 97 04/01 2057 62 152/64 04/01 1845 92 Nasal 4.5L Cannula 04/01 1658 98.1 65 20 128/88 91 Nasal Cannula 04/01 1600 Nasal 4.5L Cannula 04/01 1227 78 142/70 04/01 1226 78 142/70 Intake & Output 04/02 1600 04/02 0804/02 0000 04/01 1600 04/01 0800 04/01 0000 Intake Total 240 810 660 330 350 Output Total 1450 500 500 750 700 Balance -1210 310 160 -420 -350 Intake, IV 150 260 30 0 Intake, Oral 240 660 400 300 350 Number 1 0 0 0 Bowel Movements Output, Urine 1450 500 500 750 700 Physical Exam: General exam Comfortable Head NC/AT Eyes scera Anicteric/ conj no pallor Neck No JVD or bruits Chest Lungs clear Heart RR No murmurs Abdomen Soft/ No organomegaly Ext Bilat amputee Assessment/Plan Assessment/Plan In summary this 70 year old male has 1. New PAF on telemetry, oral AC started 2. Severe peripheral vascular disease with prior amputations 3. Hypertension 4. Diabetes 5. COPD with PNA, ? right sided pleural effusion 6. Constipation 7. CKD with mild hyperkalemia 8. Active smoker He remains in Sinus rythym.On Xarelto 20 mg aday Continue telemetry? No
--- NOTE | 2016-04-02 11:37 | PN- Pulmonary ---
Subjective HPI/Critical Care Issues: Patient was visited and examined this morning. He does not offer any particular complaint except for improving, improving dyspnea on exertion. Had a sig bm yesterday Vital signs are stable. He is on 4 L and a half of oxygen nasal cannula. Review of Systems Constitutional: Denies: chills, diaphoresis, fever, malaise, weakness, unexplained weight loss. EENTM: Denies: blurred vision, double vision, visual changes, eye pain, eye drainage, eye tearing, icterus, ear discharge, ear pain, ear redness, hearing changes, nasal congestion, epistaxis, nasal pain, throat pain, throat swelling, mouth pain, tooth pain. Cardiovascular: Denies: chest pain, edema, orthopena, palpitations, peripheral edema, syncope. Respiratory: Reports: cough, short of breath, sputum production. Denies: see HPI, hemoptysis , orthopnea, stridor, wheezing. Gastrointestinal: Denies: abdominal pain, bloating, constipation, diarrhea, distention, bowel incontinence, melena, nausea, bloody stool, changes in stool, vomiting, steatorrhea. Genitourinary: Denies: discharge, dysuria, frequency, hematuria, hesitation, nocturia, pain, urgency. Objective Current Medications: Current Medications Sig/Frank Start time Last Medication Dose Route Stop Time Status Admin Acetaminophen 650 MG Q4P PRN 03/30 2230 AC PO Acetaminophen 650 MG Q6P PRN 03/30 1945 AC PO Albuterol Sulfate 3 ML EVERY 4 HRS/AWAKE 03/31 1200 AC 04/02 INH 0855 Amlodipine Besylate 5 MG DAILY 03/31 1000 AC 04/02 PO 0920 Artificial Tears 2 GTT TID PRN 03/31 0733 AC OPH Aspirin Buffered 325 MG DAILY 03/31 1000 AC 04/02 PO 0918 Atorvastatin Calcium 40 MG DAILY 04/03 1000 AC PO Atorvastatin Calcium 20 MG ONE TIME ONE 04/02 1030 DC PO 04/02 1031 Atorvastatin Calcium 20 MG DAILY 03/31 1000 DC 04/02 PO 0919 Bisacodyl 10 MG ONCE ONE 04/01 1330 DC 04/01 NJ 04/01 1331 1445 Bisacodyl 10 MG ONCE PRN 03/31 1500 AC NJ Calcium Gluconate 1 GM ONCE ONE 04/01 1430 DC 04/01 Sodium Chloride 100 ML IV 04/01 1529 1723 Ceftazidime 1,000 MG IQ8 03/31 0000 DC 04/01 IV 0839 Ceftriaxone Sodium 2,000 MG DAILY 04/02 1000 AC 04/02 IV 0918 Escitalopram Oxalate 5 MG DAILY 03/31 1000 AC 04/02 PO 0919 Furosemide 20 MG DAILY 04/02 1000 AC 04/02 PO 0918 Guaifenesin 600 MG Q12 03/31 1000 AC 04/02 PO 0918 Heparin Sodium 5,000 UNIT Q8 03/30 2200 DC 04/01 (Porcine) SC 0644 Insulin Aspart 0 TIDAC 03/31 0800 AC 04/01 SC 1223 Insulin Detemir 15 UNITS BID 03/31 2200 AC 04/02 SC 0921 Metoprolol Tartrate 6.25 MG BID 04/01 1325 DC PO Metoprolol Tartrate 12.5 MG BID 03/31 2200 AC 04/02 PO 0919 Nystatin 1 JUANI BID 04/01 2200 AC 04/02 TOP 0922 Polyethylene Glycol 17 GM DAILY 03/31 1454 AC 04/02 PO 0922 Rivaroxaban 20 MG DAILY 03/31 1515 AC 04/02 PO 0920 Senna/Docusate Sodium 1 TAB BID PRN 03/31 1500 AC 04/01 PO 1227 Sodium Chloride 2 SPRAY Q4P PRN 04/01 0245 AC 04/01 JERRY 2101 Sodium Phosphate 1 UNIT ONCE ONE 04/01 1630 DC 04/01 NJ 04/01 1631 1723 Tiotropium [place] 1 PUF DAILY 03/31 1000 AC 04/02 INH 0920 Vancomycin HCl 1,000 MG DAILY 03/31 1000 DC 04/01 Sodium Chloride 250 ML IV 1225 Vital Signs & I&O Last 24 Hrs of Vitals and I&O: Vital Signs Date Time Temp Pulse Resp B/P Pulse O2 O2 Flow FiO2 Ox Delivery Rate 04/02 09 140/66 04/02 0919 140/66 04/02 0910 92 Nasal 4.5L Cannula 04/02 08 94 Nasal 4.5L Cannula 04/02 08 98.4 72 20 132/60 94 Nasal 4.5L Cannula 04/02 0000 Nasal 4.5L Cannula 04/01 2330 98.1 65 20 97 04/01 2057 62 152/64 04/01 1845 92 Nasal 4.5L Cannula 04/01 1658 98.1 65 20 128/88 91 Nasal Cannula 04/01 1600 Nasal 4.5L Cannula 04/01 1227 78 142/70 04/01 1226 78 142/70 Intake & Output 04/02 1600 04/02 0800 04/02 0000 Intake Total 240 810 Output Total 1450 500 Balance -1210 310 Intake, IV 150 Intake, Oral 240 660 Number 1 Bowel Movements Output, Urine 1450 500 Impression/Plan Impression/Plan Impression/Plan: Physical Exam General Appearance Alert, Oriented X3, Cooperative, No Acute Distress, sitting comfortably on the bed in no distress Skin dry crusted lesions on both arms reportedly due to skin cancer treatment (7 years ago) HEENT Atraumatic, PERRLA, Mucous Membr. moist/pink Neck Supple Cardiovascular Regular Rate, Normal S1, Normal S2, No Murmurs, Gallops, Rubs Lungs diffuse decreased breath sound, with mild wheezing Abdomen Normal Bowel Sounds, Soft, improved distention Neurological Normal Speech SIGNIFICANT DATA EKG showed transient atrial fibrillation CT CHEST 04/14 IMPRESSION: 1. There has been interval increase in the size of multiple mediastinal lymph nodes. 2. There has been interval development of a small/moderate pleural effusion on the right with adjacent atelectasis. 3. There is significant extensive emphysema. There are multifocal irregular nodular densities. These are findings stable to slightly smaller. 4. There is mild dependent debris within the gallbladder lumen. 5. There are extensive degenerative changes in the osseous structures. Nil acute abd ct IMPRESSION This a gentleman who is an active smoker with severe emphysema as noted in the CAT scan now comes in with cough wheezing shortness of breath suggestive of * Mild COPD exacerbation with probable pulmonary infiltrates suggestive of pneumonia. However he does not have high fever or increasing WBC and significant pneumonia seems less likely * Increasing lymphadenopathy in the mediastinum in a pt who is high risk for malignancy with ongoing smoking highly suggestive of malignancy Diff dx lympoma vs carcinoma appears to be slowly growing in the past 18 months. Pt now declines to consider a mediastinoscopy or Bronch with EBUS and wishes to follow up as out pt if he wishes to go through bx and sub rx . Aware of all risks and is comfortable with his decision * Previous lung nodules in the previous ct now with stablity of these nodules in the past 18 months sugg of either a benign process or slow growing malignancy and pt no a candidate for a lung bx but may be a candidate for mediastinoscopy as he has increasing lymphnodes * Severe emphysema in the ct with ongoing smoking * Small rt effusion prob due to fluid overload vs other cause but too small to tap and unlikely empyema so far * Paroxysmal atrial fibrillation new onset on anticoag * Ongoing smoking unable to quit smoking despite his amputations * Severe peripheral vascular disease with amputation * REsolving abdominal distention due to prob severe constipation * Chronic kidney disease with stage III chronic kidney disease with worsening mild renal insufficiency * Diabetes, hypertension, hyperlipidemia, ongoing smoking RECOMMENDATION * Can change to po abx in am prob moxi for 5 more days * Ok to start on po prednisone 20 qd for five days as he continues to wheeze * Pt wishes to consider bx of mediastinal nodes as out pt if he chooses in the future and aware of the risks. WIshes no intubation etc in the future * Aggressive bowel regimen * Aggressive sugar control * Continue his current bronchodilator regimen with albuterol nebulizer as needed , Spiriva 1 puff once a day * Check Rt lat decub xray in am to assess effusion * Give an extra dose of po lasix today * Okay to use low-dose beta soco * Smoking cessation counseling was done.
[2016-04-02 15:30] VITALS: BP 162/78
[2016-04-02 22:00] VITALS: BP 150/80
[2016-04-03 07:00] VITALS: BP 150/72
--- NOTE | 2016-04-03 07:05 | PN- Att Addend ---
Attending Addendum Attending Brief Note Intake & Output 04/03 0804/03 0000 04/02 1600 Intake Total 200 720 Output Total 500 800 Balance -300 -80 Intake, Oral 200 720 Output, Urine 500 800 Current Medications Sig/Frank Start time Last Medication Dose Route Stop Time Status Admin Acetaminophen 650 MG Q4P PRN 03/30 2230 AC PO Acetaminophen 650 MG Q6P PRN 03/30 1945 AC PO Albuterol Sulfate 3 ML EVERY 4 HRS/AWAKE 03/31 1200 AC 04/02 INH 2040 Amlodipine Besylate 5 MG DAILY 03/31 1000 AC 04/02 PO 0920 Artificial Tears 2 GTT TID PRN 03/31 0733 AC OPH Aspirin Buffered 325 MG DAILY 03/31 1000 AC 04/02 PO 0918 Atorvastatin Calcium 40 MG DAILY 04/03 1000 AC PO Atorvastatin Calcium 20 MG ONE TIME ONE 04/02 1030 DC 04/02 PO 04/02 1031 1348 Atorvastatin Calcium 20 MG DAILY 03/31 1000 DC 04/02 PO 0919 Bisacodyl 10 MG ONCE PRN 03/31 1500 AC MA Ceftriaxone Sodium 2,000 MG DAILY 04/02 1000 DC 04/02 IV 04/02 2300 0918 Escitalopram Oxalate 5 MG DAILY 03/31 1000 AC 04/02 PO 0919 Furosemide 20 MG ONCE ONE 04/02 1645 DC 04/02 PO 04/02 1646 1808 Furosemide 20 MG DAILY 04/02 1000 AC 04/02 PO 0918 Guaifenesin 600 MG Q12 03/31 1000 AC 04/02 PO 2213 Insulin Aspart 0 TIDAC 04/02 1700 AC SC Insulin Aspart 0 TIDAC 03/31 0800 DC 04/01 SC 1223 Insulin Detemir 15 UNITS BID 03/31 2200 AC 04/02 SC 2213 Metoprolol Tartrate 12.5 MG BID 03/31 2200 AC 04/02 PO 2213 Moxifloxacin HCl 400 MG DAILY 04/03 1000 AC PO 04/07 1001 Nystatin 1 JUANI BID 04/01 2200 AC 04/02 TOP 2213 Patient Medication 1 ED .STK-MED ONE 04/02 1301 DC Teaching ED 04/02 1302 Polyethylene Glycol 17 GM DAILY 03/31 1454 AC 04/02 PO 0922 Prednisone 20 MG DAILY 04/02 1638 AC 04/02 PO 04/06 1001 1824 Rivaroxaban 20 MG DAILY 03/31 1515 AC 04/02 PO 0920 Senna/Docusate Sodium 1 TAB BID PRN 03/31 1500 AC 04/01 PO 1227 Sodium Chloride 2 SPRAY Q4P PRN 04/01 0245 AC 04/01 JERRY 2101 Tiotropium [place] 1 PUF DAILY 03/31 1000 AC 04/02 INH 0920 Laboratory Tests 04/02 04/02 0740 0710 Chemistry Sodium (137 - 145 mmol/L) 139 Potassium (3.5 - 5.1 mmol/L) 5.3 H Chloride (98 - 107 mmol/L) 100 Carbon Dioxide (22 - 30 mmol/L) 28 Anion Gap (5 - 16) 11 BUN (9 - 20 mg/dL) 27 H Creatinine (0.7 - 1.2 mg/dL) 1.8 H Estimated GFR (>60 ml/min) 37 L BUN/Creatinine Ratio (7 - 25 %) 15.0 Triglycerides (<150 mg/dL) 150 Cholesterol (< 200 MG/DL) 127 LDL Cholesterol, Calc (65 - 129 mg/dL) 70 HDL Cholesterol (40 - 60 mg/dL) 27 L Cholesterol/HDL Ratio (0.00 - 4.88 %) 5 H Hematology CBC w Diff NO MAN DIFF REQ WBC (4.8 - 10.8 /CUMM) 7.3 RBC (4.70 - 6.10 /CUMM) 3.48 L Hgb (14.0 - 18.0 G/DL) 10.0 L Hct (42 - 52 %) 30.3 L MCV (80.0 - 94.0 FL) 87.1 MCH (27.0 - 31.0 PG) 28.7 RDW (11.5 - 14.5 %) 14.8 H Plt Count (130 - 400 /CUMM) 360 MPV (7.4 - 10.4 FL) 7.7 Gran % (42.2 - 75.2 %) 74.7 Lymphocytes % (20.5 - 51.1 %) 10.7 L Monocytes % (1.7 - 9.3 %) 8.4 Eosinophils % (0 - 5 %) 5.9 H Basophils % (0.0 - 2.0 %) 0.3 Absolute Granulocytes (1.4 - 6.5 /CUMM) 5.4 Absolute Lymphocytes (1.2 - 3.4 /CUMM) 0.8 L Absolute Monocytes (0.10 - 0.60 /CUMM) 0.6 Absolute Eosinophils (0.0 - 0.7 /CUMM) 0.4 Absolute Basophils (0.0 - 0.2 /CUMM) 0 PUBS MCHC (33.0 - 37.0 G/DL) 32.9 L Vital Signs Date Time Temp Pulse Resp B/P Pulse O2 O2 Flow FiO2 Ox Delivery Rate 04/02 2213 67 150/70 04/02 2200 97.7 63 20 150/80 96 Room Air 04/02 1630 98 Nasal 4.5L Cannula 04/02 1530 98.5 66 20 162/78 96 Nasal 4.5L Cannula 04/02 0920 140/66 04/02 0919 140/66 04/02 0910 92 Nasal 4.5L Cannula 04/02 0800 94 Nasal 4.5L Cannula 04/02 0800 98.4 72 20 132/60 94 Nasal 4.5L Cannula Intake & Output 04/03 0800 04/03 0000 04/02 1600 Intake Total 200 720 Output Total 500 800 Balance -300 -80 Intake, Oral 200 720 Output, Urine 500 800 Attending note. Patient feels a lot better his breathing is markedly improved and the abdominal distention is markedly decreased. His vital signs are stable S1-S2 is normal Lungs shows bilateral diminished breath sounds with expiratory wheezing Assessment Bronchitis exacerbation of for COPD in the setting of severe COPD. Switched to by mouth antibiotics Augmentin 875 twice a day for 5 days Discharged to group home facility with tapering dose of prednisone.
--- NOTE | 2016-04-03 07:30 | PN- Housestaff ---
Subjective Follow-up For: pneumonia A.Fib DM HTN Hyperkalemia in the setiing of CKD Complaints: no complaints Tele-Events Since Last Visit: NSRR old BBB 60s bpm Subjective: She was visited and examined this morning. 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 He felt much improvement in the dysrhythmia no abdominal pain distention no tenderness. Possible discharge today. Antibiotic was changed to moxifloxacin oral plan was discussed with the patient and he is agreeable. Review of Systems Constitutional: Reports: see HPI. Denies: chills, diaphoresis, fever, malaise, weakness, unexplained weight loss. Cardiovascular: Denies: chest pain, edema, orthopena, palpitations, peripheral edema, syncope. Respiratory: Reports: cough, sputum production, wheezing. Denies: no symptoms, see HPI, hemoptysis, orthopnea, short of breath, stridor. Gastrointestinal: Denies: abdominal pain, bloating, constipation, diarrhea, distention, bowel incontinence, melena, nausea, bloody stool, changes in stool, vomiting, steatorrhea. Genitourinary: Denies: discharge, dysuria, frequency, hematuria, hesitation, nocturia, pain, urgency. Musculoskeletal: Denies: back pain, gout, joint pain, joint swelling, muscle pain, muscle stiffness, neck pain. Objective Last 24 Hrs of Vital Signs/I&O Vital Signs Date Time Temp Pulse Resp B/P Pulse O2 O2 Flow FiO2 Ox Delivery Rate 04/02 2213 67 150/70 04/02 2200 97.7 63 20 150/80 96 Room Air 04/02 1630 98 Nasal 4.5L Cannula 04/02 1530 98.5 66 20 162/78 96 Nasal 4.5L Cannula 04/02 0920 140/66 04/02 0919 140/66 04/02 0910 92 Nasal 4.5L Cannula 04/02 08 94 Nasal 4.5L Cannula 04/02 08 98.4 72 20 132/60 94 Nasal 4.5L Cannula Intake & Output 04/03 0804/03 0000 04/02 1600 Intake Total 200 720 Output Total 500 800 Balance -300 -80 Intake, Oral 200 720 Output, Urine 500 800 Physical Exam General Appearance: Alert, Oriented X3, Cooperative, No Acute Distress Skin: No Rashes, No Breakdown, No Significant Lesion HEENT: Atraumatic, PERRLA, EOMI, Mucous Membr. moist/pink Neck: Supple, No JVD, No thryomegaly Lymphatic: Axillary nl, Cervical nl Cardiovascular: Normal S1, Normal S2, No Murmurs Lungs: Clear to Auscultation, Normal Air Movement Abdomen: Soft, No Tenderness Neurological: Normal Gait Extremities: No Clubbing, No Cyanosis, No Edema Vascular: Normal Pulses, Pulses Symmetrical Current Medications: Current Medications Sig/Frank Start time Last Medication Dose Route Stop Time Status Admin Acetaminophen 650 MG Q4P PRN 03/30 2230 AC PO Acetaminophen 650 MG Q6P PRN 03/30 1945 AC PO Albuterol Sulfate 3 ML EVERY 4 HRS/AWAKE 03/31 1200 AC 04/02 INH 2040 Amlodipine Besylate 5 MG DAILY 03/31 1000 AC 04/02 PO 0920 Artificial Tears 2 GTT TID PRN 03/31 0733 AC OPH Aspirin Buffered 325 MG DAILY 03/31 1000 AC 04/02 PO 0918 Atorvastatin Calcium 40 MG DAILY 04/03 1000 AC PO Atorvastatin Calcium 20 MG ONE TIME ONE 04/02 1030 DC 04/02 PO 04/02 1031 1348 Atorvastatin Calcium 20 MG DAILY 03/31 1000 DC 04/02 PO 0919 Bisacodyl 10 MG ONCE PRN 03/31 1500 AC MO Ceftriaxone Sodium 2,000 MG DAILY 04/02 1000 DC 04/02 IV 04/02 2300 0918 Escitalopram Oxalate 5 MG DAILY 03/31 1000 AC 04/02 PO 0919 Furosemide 20 MG ONCE ONE 04/02 1645 DC 04/02 PO 04/02 1646 1808 Furosemide 20 MG DAILY 04/02 1000 AC 04/02 PO 0918 Guaifenesin 600 MG Q12 03/31 1000 AC 04/02 PO 2213 Insulin Aspart 0 TIDAC 04/02 1700 AC SC Insulin Aspart 0 TIDAC 03/31 0800 DC 04/01 SC 1223 Insulin Detemir 15 UNITS BID 03/31 2200 AC 04/02 SC 2213 Metoprolol Tartrate 12.5 MG BID 03/31 2200 AC 04/02 PO 2213 Moxifloxacin HCl 400 MG DAILY 04/03 1000 AC PO 04/07 1001 Nystatin 1 JUANI BID 04/01 2200 AC 04/02 TOP 2213 Patient Medication 1 ED .STK-MED ONE 04/02 1301 TX Teaching ED 04/02 1302 Polyethylene Glycol 17 GM DAILY 03/31 1454 AC 04/02 PO 0922 Prednisone 20 MG DAILY 04/02 1638 AC 04/02 PO 04/06 1001 1824 Rivaroxaban 20 MG DAILY 03/31 1515 AC 04/02 PO 0920 Senna/Docusate Sodium 1 TAB BID PRN 03/31 1500 AC 04/01 PO 1227 Sodium Chloride 2 SPRAY Q4P PRN 04/01 0245 AC 04/01 JERRY 2101 Tiotropium [place] 1 PUF DAILY 03/31 1000 AC 04/02 INH 0920 Last 24 Hrs of Lab/[place] Results Last 24 Hrs of Labs/Mics: Laboratory Tests 04/02/16 0740: Anion Gap 11, Estimated GFR 37 L, BUN/Creatinine Ratio 15.0, Triglycerides 150, Cholesterol 127, LDL Cholesterol, Calc 70, HDL Cholesterol 27 L, Cholesterol/ HDL Ratio 5 H Assessment/Plan Assessment: 70-year-old male with PMH of insulin dependent DM, daily smoker, and multiple comorbidities was admitted for progressive dyspnea. Chest x-ray: 1. Chronic peribronchial interstitial thickening -- likely bronchitis -- and pulmonary emphysema. 2. New, hazy opacity in right upper lobe is suspicious for pneumonia. 3. Linear opacities of atelectasis in lower lobes remain similar in appearance compared to 10/20/2014. Chest CT scan: 1. There has been interval increase in the size of multiple mediastinal lymph nodes. 2. There has been interval development of a small/moderate pleural effusion on the right with adjacent atelectasis. 3. There is significant extensive emphysema. There are multifocal irregular nodular densities. These are findings stable to slightly smaller. 4. There is mild dependent debris within the gallbladder lumen. 5. There are extensive degenerative changes in the osseous structures. Assessment -Diabetes -HCAP -ARF on CKD -COPD and chronic smoker Plan -start moxifloxacin daily for 5 days-today -Continue Xarelto for atrial fibrillation anticoagulation -Moderate insuling ss and restrict CHO diet for uncontrolled suger -TRC nebs with spiriva -restart lisinopril after resolution of CKD -Constipation: Resolved -Hyperkalemia: Mostly secondary to constipation; -Continue Lexapro -Elevated creatinine 0.5 mg above the baseline we held the lisinopril and plan to discharge the patient on amlodipine 5 mg for hypertension control and metoprolol 12.5 mg BID Problem List: 1. Acute renal failure (ARF) 2. Healthcare associated bacterial pneumonia 3. Hypoxemia 4. COPD exacerbation 5. DVT prophylaxis 6. Diabetes 7. Hypertension Pain Ratin Pain Location: general Pain Goal: Pain 4 or less Pain Plan: tylenol Tomorrow's Labs & Rationales: bep
--- NOTE | 2016-04-03 08:59 | PN- Pulmonary ---
Subjective HPI/Critical Care Issues: MUch better Afebrile vss chest clear Objective Current Medications: Current Medications Sig/Frank Start time Last Medication Dose Route Stop Time Status Admin Acetaminophen 650 MG Q4P PRN 03/30 2230 AC PO Acetaminophen 650 MG Q6P PRN 03/30 1945 AC PO Albuterol Sulfate 3 ML BID 04/03 2200 UNVr INH Albuterol Sulfate 3 ML EVERY 4 HRS/AWAKE 03/31 1200 DC 04/03 INH 0845 Amlodipine Besylate 5 MG DAILY 03/31 1000 AC 04/02 PO 0920 Artificial Tears 2 GTT TID PRN 03/31 0733 AC OPH Aspirin Buffered 325 MG DAILY 03/31 1000 AC 04/02 PO 0918 Atorvastatin Calcium 40 MG DAILY 04/03 1000 AC PO Atorvastatin Calcium 20 MG ONE TIME ONE 04/02 1030 DC 04/02 PO 04/02 1031 1348 Atorvastatin Calcium 20 MG DAILY 03/31 1000 DC 04/02 PO 0919 Bisacodyl 10 MG ONCE PRN 03/31 1500 AC KS Ceftriaxone Sodium 2,000 MG DAILY 04/02 1000 DC 04/02 IV 04/02 2300 0918 Escitalopram Oxalate 5 MG DAILY 03/31 1000 AC 04/02 PO 0919 Furosemide 20 MG ONCE ONE 04/02 1645 DC 04/02 PO 04/02 1646 1808 Furosemide 20 MG DAILY 04/02 1000 AC 04/02 PO 0918 Guaifenesin 600 MG Q12 03/31 1000 AC 04/02 PO 2213 Insulin Aspart 0 TIDAC 04/02 1700 AC 04/03 SC 0808 Insulin Aspart 0 TIDAC 03/31 0800 DC 04/01 SC 1223 Insulin Detemir 15 UNITS BID 03/31 2200 AC 04/02 SC 2213 Metoprolol Tartrate 12.5 MG BID 03/31 2200 AC 04/02 PO 2213 Moxifloxacin HCl 400 MG DAILY 04/03 1000 AC PO 04/07 1001 Nystatin 1 JUANI BID 04/01 2200 AC 04/02 TOP 2213 Patient Medication 1 ED .STK-MED ONE 04/02 1301 DC Teaching ED 04/02 1302 Polyethylene Glycol 17 GM DAILY 03/31 1454 AC 04/02 PO 0922 Prednisone 20 MG DAILY 04/02 1638 AC 04/02 PO 04/06 1001 1824 Rivaroxaban 20 MG DAILY 03/31 1515 AC 01/05 PO 0920 Senna/Docusate Sodium 1 TAB BID PRN 03/31 1500 AC 04/01 PO 1227 Sodium Chloride 2 SPRAY Q4P PRN 04/01 0245 AC 04/01 JERRY 2101 Tiotropium [place] 1 PUF DAILY 03/31 1000 AC 04/02 INH 0920 Vital Signs & I&O Last 24 Hrs of Vitals and I&O: Vital Signs Date Time Temp Pulse Resp B/P Pulse O2 O2 Flow FiO2 Ox Delivery Rate 04/03 0846 93 Nasal 3.0L Cannula 04/03 0700 98.3 63 18 150/72 95 04/02 2213 67 150/70 04/02 2200 97.7 63 20 150/80 96 Room Air 04/02 1630 98 Nasal 4.5L Cannula 04/02 1530 98.5 66 20 162/78 96 Nasal 4.5L Cannula 04/02 0920 140/66 04/02 0919 140/66 04/02 0910 92 Nasal 4.5L Cannula Intake & Output 04/03 1600 04/03 0800 04/03 0000 Intake Total 100 200 Output Total 700 500 Balance -600 -300 Intake, Oral 100 200 Output, Urine 700 500 Impression/Plan Impression/Plan Impression/Plan: Physical Exam General Appearance Alert, Oriented X3, Cooperative, No Acute Distress, sitting comfortably on the bed in no distress Skin dry crusted lesions on both arms reportedly due to skin cancer treatment (7 years ago) HEENT Atraumatic, PERRLA, Mucous Membr. moist/pink Neck Supple Cardiovascular Regular Rate, Normal S1, Normal S2, No Murmurs, Gallops, Rubs Lungs diffuse decreased breath sound, with mild wheezing Abdomen Normal Bowel Sounds, Soft, improved distention Neurological Normal Speech SIGNIFICANT DATA EKG showed transient atrial fibrillation CT CHEST 04/14 IMPRESSION: 1. There has been interval increase in the size of multiple mediastinal lymph nodes. 2. There has been interval development of a small/moderate pleural effusion on the right with adjacent atelectasis. 3. There is significant extensive emphysema. There are multifocal irregular nodular densities. These are findings stable to slightly smaller. 4. There is mild dependent debris within the gallbladder lumen. 5. There are extensive degenerative changes in the osseous structures. Nil acute abd ct IMPRESSION This a gentleman who is an active smoker with severe emphysema as noted in the CAT scan now comes in with cough wheezing shortness of breath suggestive of * Mild COPD exacerbation with probable pulmonary infiltrates suggestive of pneumonia. However he does not have high fever or increasing WBC and significant pneumonia seems less likely * Increasing lymphadenopathy in the mediastinum in a pt who is high risk for malignancy with ongoing smoking highly suggestive of malignancy Diff dx lympoma vs carcinoma appears to be slowly growing in the past 18 months. Pt now declines to consider a mediastinoscopy or Bronch with EBUS and wishes to follow up as out pt if he wishes to go through bx and sub rx . Aware of all risks and is comfortable with his decision * Previous lung nodules in the previous ct now with stablity of these nodules in the past 18 months sugg of either a benign process or slow growing malignancy and pt no a candidate for a lung bx but may be a candidate for mediastinoscopy as he has increasing lymphnodes * Severe emphysema in the ct with ongoing smoking * Small rt effusion prob due to fluid overload vs other cause but too small to tap and unlikely empyema so far * Paroxysmal atrial fibrillation new onset on anticoag * Ongoing smoking unable to quit smoking despite his amputations * Severe peripheral vascular disease with amputation * REsolving abdominal distention due to prob severe constipation * Chronic kidney disease with stage III chronic kidney disease with worsening mild renal insufficiency * Diabetes, hypertension, hyperlipidemia, ongoing smoking RECOMMENDATION * Can change to po abx moxi or augmentin is ok * Ok to start on po prednisone 20 qd for five days as he continues to wheeze * Pt wishes to consider bx of mediastinal nodes as out pt if he chooses in the future and aware of the risks. WIshes no intubation etc in the future * Aggressive bowel regimen * Aggressive sugar control * Continue his current bronchodilator regimen with albuterol nebulizer as needed , Spiriva 1 puff once a day * Pt wishes to return to snf and can be dcd * Okay to use low-dose beta soco * Smoking cessation counseling was done. Please have pt see me in two weeks and then will decide about further action
[2016-04-03] MEDS ORDERED: MOXIFLOXACIN H400 M2 PO (10:47)
[2016-04-03] MEDS ORDERED: XARELTO10 M1 PO (10:48)
[2016-04-03] MEDS ORDERED: METOPROLOL TART25 M1 PO (10:49)
[2016-04-03] MEDS ORDERED: PREDNISONE20 M1 PO (10:53)
[2016-04-03] MEDS ORDERED: AMLODIPINE BESYL5 M1 PO (10:55)
[2016-04-03] MEDS ORDERED: ATORVASTATIN CA40 M1 PO (10:56)
--- NOTE | 2016-04-03 11:12 | Patient Discharge Instructions ---
Discharge Instructions General Discharge Information You were seen/treated for: Pneumonia Atrial fibrillation Acute renal failure on chronic kidney disease Special Instructions: #1 please follow-up with her primary care physician within 4 days after discharge. 4 post hospitalization assessment #2 list check completes chemical panel within 48-72 hours and follow-up with your primary care physician regarding resolution of worsening of your acute renal failure #3 please follow-up with Dr. Giuseppe Royal in a close future, within 1 week Acute Coronary Syndrome Inclusion Criteria At DC or during hospital stay patient has or had the following: ACS DIAGNOSIS No Discharge Core Measures Meds if any: Prescribed or Continued at Discharge Meds if any: NOT Prescribed or Continued at Discharge Congestive Heart Failure Inclusion Criteria At DC or during hospital stay patient has or had the following: CHF DIAGNOSIS No Discharge Core Measures Meds if any: Prescribed or Continued at Discharge Meds if any: NOT Prescribed or Continued at Discharge Cerebrovascular accident Inclusion Criteria At DC or during hospital stay patient has or had the following: CVA/TIA Diagnosis No Discharge Core Measures Meds if any: Prescribed or Continued at Discharge Meds if any: NOT Prescribed or Continued at Discharge Venous thromboembolism Inclusion Criteria VTE Diagnosis No VTE Type NONE VTE Confirmed by (Test) NONE Discharge Core Measures - Per Current guidelines, there needs to be overlap - treatment for the first 5 days of Warfarin therapy. - If discharged on Warfarin prior to 5 days of - overlap therapy, the patient will need to be - assessed for post discharge needs including - *Post discharge parental anticoagulation - *Warfarin and/or parental anticoagulation education - *Follow up date to check INR post discharge At least 5 days overlap therapy as Inpatient No Meds if any: Prescribed or Continued at Discharge Note: Overlap Therapy is Warfarin and Anticoagulant Meds if any: NOT Prescribed or Continued at Discharge
--- NOTE | 2016-04-03 12:02 | RADIOLOGY REPORT ---
EXAMINATION: XR DECUBITUS FILMS CLINICAL INFORMATION: Right chest decubitus pleural effusion. COMPARISON: None. TECHNIQUE: Right decubitus chest radiograph FINDINGS: Trace right pleural effusion. No evidence of pneumothorax on this limited view of the chest. Cardiomegaly. Pulmonary vascular congestion. IMPRESSION: Trace right pleural effusion. Cardiomegaly. Pulmonary vascular congestion.
[2016-04-03] MEDS ORDERED: FUROSEMIDE20 M1 PO (14:12)
--- NOTE | 2016-04-03 15:32 | PN- Cardiology ---
Subjective Subjective: Feels much better after having a bowel movement yesterday. No chest pain or palpitations. Objective Vital Signs and I&Os Vital Signs Date Time Temp Pulse Resp B/P Pulse O2 O2 Flow FiO2 Ox Delivery Rate 04/03 0934 63 150/72 04/03 0934 63 150/72 04/03 0846 93 Nasal 3.0L Cannula 04/03 799 934 Nasal 3.0L Cannula 04/03 699 98.3 63 18 150/72 95 04/02 2213 67 150/70 04/02 2200 97.7 63 20 150/80 96 Room Air 04/02 1630 98 Nasal 4.5L Cannula 04/02 1530 98.5 66 20 162/78 96 Nasal 4.5L Cannula Intake & Output 04/03 1600 04/03 0804/03 0000 04/02 1600 04/02 0804/02 0000 Intake Total 720 100 200 720 240 810 Output Total 400 700 828 012 6780 500 Balance 320 -600 - 310 Intake, IV 150 Intake, Oral 720 100 200 720 240 660 Number 1 Bowel Movements Output, Urine 400 700 996 577 6995 500 Physical Exam: General: No distress at rest. Eyes: No obvious scleral icterus. HEENT: No jugular venous distention or abnormal jugular venous pulsations. Cardiovascular: Normal intensity S1/S2. Regular. Respiratory: Mildly decreased air entry at the right base Abdomen: distended, no guarding Musculoskeletal: amputations noted Skin: Warm Current Medications: Current Medications Sig/Frank Start time Last Medication Dose Route Stop Time Status Admin Acetaminophen 650 MG Q4P PRN 03/30 2230 AC PO Acetaminophen 650 MG Q6P PRN 03/30 1945 AC PO Albuterol Sulfate 3 ML BID 04/03 2200 AC INH Albuterol Sulfate 3 ML EVERY 4 HRS/AWAKE 03/31 1200 DC 04/03 INH 0845 Amlodipine Besylate 5 MG DAILY 03/31 1000 AC 04/03 PO 0934 Artificial Tears 2 GTT TID PRN 03/31 0733 AC OPH Aspirin Buffered 325 MG DAILY 03/31 1000 AC 04/03 PO 0934 Atorvastatin Calcium 40 MG DAILY 04/03 1000 AC 04/03 PO 0934 Bisacodyl 10 MG ONCE PRN 03/31 1500 AC KS Ceftriaxone Sodium 2,000 MG DAILY 04/02 1000 DC 04/02 IV 04/02 2300 0918 Escitalopram Oxalate 5 MG DAILY 03/31 1000 AC 04/03 PO 0934 Furosemide 20 MG ONCE ONE 04/02 1645 DC 04/02 PO 04/02 1646 1808 Furosemide 20 MG DAILY 04/02 1000 AC 04/03 PO 0936 Guaifenesin 600 MG Q12 03/31 1000 AC 04/03 PO 0934 Insulin Aspart 0 TIDAC 04/02 1700 AC 04/03 SC 1216 Insulin Aspart 0 TIDAC 03/31 0800 DC 04/01 SC 1223 Insulin Detemir 15 UNITS BID 03/31 2200 AC 04/03 SC 0934 Metoprolol Tartrate 12.5 MG BID 03/31 2200 AC 04/03 PO 0934 Moxifloxacin HCl 400 MG DAILY 04/03 1000 AC 04/03 PO 04/07 1001 0935 Nystatin 1 JUANI BID 04/01 2200 AC 04/03 TOP 0937 Polyethylene Glycol 17 GM DAILY 03/31 1454 AC 04/03 PO 0933 Prednisone 20 MG DAILY 04/02 1638 AC 04/03 PO 04/06 1001 0935 Rivaroxaban 20 MG DAILY 03/31 1515 AC 04/03 PO 0934 Senna/Docusate Sodium 1 TAB BID PRN 03/31 1500 AC 04/01 PO 1227 Sodium Chloride 2 SPRAY Q4P PRN 04/01 0245 AC 04/01 JERRY 2101 Tiotropium [place] 1 PUF DAILY 03/31 1000 AC 04/03 INH 0935 Results Last 48 Hrs of Labs/Mics: Laboratory Tests 04/02/16 0740: Anion Gap 11, Estimated GFR 37 L, BUN/Creatinine Ratio 15.0, Triglycerides 150, Cholesterol 127, LDL Cholesterol, Calc 70, HDL Cholesterol 27 L, Cholesterol/ HDL Ratio 5 H 04/02/16 0710: CBC w Diff NO MAN DIFF REQ, RBC 3.48 L, MCV 87.1, MCH 28.7, RDW 14.8 H, MPV 7.7, Gran % 74.7, Lymphocytes % 10.7 L, Monocytes % 8.4, Eosinophils % 5.9 H, Basophils % 0.3, Absolute Granulocytes 5.4, Absolute Lymphocytes 0.8 L, Absolute Monocytes 0.6, Absolute Eosinophils 0.4, Absolute Basophils 0, PUBS MCHC 32.9 L Recent Imaging Studies: Telemetry tracings personally reviewed and shows sinus rhythm Assessment/Plan Assessment/Plan 1. New PAF on telemetry, oral AC started 2. Severe peripheral vascular disease with prior amputations 3. Hypertension 4. Diabetes 5. COPD with PNA, ? right sided pleural effusion 6. Constipation 7. CKD with mild hyperkalemia 8. Active smoker Patient feels well and offers no complaints today. Would continue on the Lasix 20 mg by mouth daily. Continue on Lipitor 40 mg daily. If creatinine clearance is estimated at less than 50 would change Xarelto to 15 mg by mouth daily. He will need an echocardiogram but can be done as an outpatient if needed. He should follow-up in our office within one week of discharge. Richard Berry MD [facility] Continue telemetry? No
[2016-04-03 16:16] VITALS: BP 168/72
[2016-04-03 17:24] VITALS: BP 168/72
== END 2016-04-03 18:45 | DRG 190 ==
LOC: ERH 15:26 → ERHI 17:43 → 1NO 17:43
PROVIDERS: Internal Medicine; Physician Assistant; Student in an Organized Health Care Education/Training Program; ADMIT Internal Medicine
DX: J44.0 Chronic obstructive pulmonary disease with (acute) lower respiratory infection (principal); J96.01 Acute respiratory failure with hypoxia; J18.9 Pneumonia, unspecified organism; N17.9 Acute kidney failure, unspecified; I48.92 Unspecified atrial flutter; E87.5 Hyperkalemia; E11.65 Type 2 diabetes mellitus with hyperglycemia; N18.3 Chronic kidney disease, stage 3 (moderate); J44.1 Chronic obstructive pulmonary disease with (acute) exacerbation; F17.210 Nicotine dependence, cigarettes, uncomplicated; I12.9 Hypertensive chronic kidney disease with stage 1 through stage 4 chronic kidney disease, or unspecified chronic kidney disease; I73.9 Peripheral vascular disease, unspecified; I48.0 Paroxysmal atrial fibrillation; R91.8 Other nonspecific abnormal finding of lung field; Z79.4 Long term (current) use of insulin; Z89.611 Acquired absence of right leg above knee; Z89.512 Acquired absence of left leg below knee
CPT/HCPCS: 1NP; 87075; 36415; 71035; 74000; 74176; 81001; 82436; 87040; 87070; 87449; 87450; 93005; 93010; 96361; 96374; 96375; J0610; J0696; J0713; J1644; J3370; J3490; J7040